=== PATIENT | female | born 1955 | race Caucasian/White ===

== ENCOUNTER 2017-02-07 15:03 | Observation (INO) ==
[2017-02-07 16:07] LABS: Basophils # 0.1 K/mcL (0.0-0.2); Basophils % 0.5 %; Eosinophils # 0.2 K/mcL (0.0-0.6); Eosinophils % 1.8 %; Hematocrit 39.6 % (35.3-44.9); Hemoglobin 12.5 g/dL (11.5-15.4); Immature Granulocytes % 0.6 % (0-4); Lymphocytes # 1.4 K/mcL (0.6-4.6); Mean Corpuscular HGB Conc 31.6 g/dL (31.6-35.5); Mean Corpuscular Hemoglobin 26.8 pg (28.0-33.3); Mean Platelet Volume 9.6 fL (9.4-12.4); Monocytes # 0.8 K/mcL (0.0-1.3); Neutrophils # 9.9 K/mcL (1.6-8.9); Platelet Count 314 K/mcL (140-400); Red Blood Count 4.66 M/mcL (3.82-4.97); Red Cell Distribution Width 15.5 % (11.5-14.5); Segmented Neutrophils % 80.1 %
[2017-02-07 16:20] LABS: BUN/Creatinine Ratio 26 (6-26); Blood Urea Nitrogen 23 mg/dL (7-20); Carbon Dioxide 29 mEq/L (19-29); Chloride 103 mEq/L (98-109); Glucose 106 mg/dL (70-99); Osmolality,Calculated 296 (280-300); Sodium 141 mEq/L (136-145); eGFR For African Americans > 60 (> 60); eGFR For Non-African Americans > 60 (> 60)
--- NOTE | 2017-02-07 16:38 | Emergency Department Note ---
Disposition Clinical Impression: TIA (transient ischemic attack) Qualifiers: Transient cerebral ischemia type: unspecified Qualified Code(s): G45.9 - Transient cerebral ischemic attack, unspecified Disposition: Admitted As Inpatient Condition: Fair Time of Disposition: 19:37 General Adult HPI - General Chief complaint: ED Neuro Symptoms/Deficit Stated complaint: NUMBNESS Time Seen by Provider: 02/07/17 15:36 Source: patient Limitations: no limitations Nursing Notes Reviewed: Yes Vital Signs Reviewed: Yes - History of Present Illness HPI Narrative: Patient is a 59-year-old female with history of diabetes hypertension hyperlipidemia, thyroid disease and diabetes complains of intermittent left- sided weakness with right-sided intermittent headache symptoms. She is unable to describe the pain and she feels but it comes and goes and lasts approximately 30 minutes. Patient states this happened 4 days ago and was seen in the ED had a head CT and workup but had no acute findings and had resolution of symptoms and was discharged home. Patient states that 0 5:30 this morning symptoms returned with left upper and lower extremity weakness all by headache left-sided head last for 30 minutes and blurred vision. Patient called her PCP and was told to go to the ED. Patient states that her headache stopped after she got the bus. Patient also reports URI symptoms of congestion and postnasal drip and bout of loose stool that started today no blood Pain Scale: 0 - Related Data Home Medications Medication Instructions Recorded Confirmed Allopurinol [Zyloprim] 300 mg PO DAILY 09/07/16 09/07/16 Carvedilol 3.125 mg PO BID 09/07/16 09/07/16 Cyclobenzaprine [Flexeril] 10 mg PO TID 09/07/16 09/07/16 Ergocalciferol (VITAMIN D2) 50,000 unit PO QWEEK 09/07/16 09/07/16 [Vitamin D2] GlipiZIDE [Glipizide] 10 mg PO BID 09/07/16 09/07/16 Levothyroxine [Synthroid] 25 mcg PO DAILY 09/07/16 09/07/16 Linagliptin [Tradjenta] 5 mg PO DAILY 09/07/16 09/07/16 Lovastatin [Mevacor] 20 mg PO DAILY 09/07/16 09/07/16 Metformin [Glucophage] 500 mg PO BID 09/07/16 09/07/16 Methocarbamol [Robaxin] 500 mg PO TID 09/07/16 09/07/16 Albuterol Sulfate [Proair Hfa] 1 - 2 puff IH Q6H PRN 02/07/17 02/07/17 CloNIDine HCl [Clonidine HCl] 0.3 mg PO BID 02/07/17 02/07/17 Furosemide [Lasix] 40 mg PO Q48H PRN 02/07/17 02/07/17 Ketotifen Fumarate [Zaditor] 1 drop OP BID 02/07/17 02/07/17 Potassium Chloride [K-Tab ER] 20 meq PO BID 02/07/17 02/07/17 Previous Rx's Medication Instructions Recorded Amlodipine [Norvasc] 5 mg PO DAILY #60 tablet 09/10/16 Clopidogrel [Plavix] 75 mg PO DAILY #30 tablet 10/25/16 Allergies Allergy/AdvReac Type Severity Reaction Status Date / Time Amoxicillin Allergy Hives Verified 02/04/17 01:38 codeine Allergy Hives Verified 02/04/17 01:38 Constitutional: Denies: fever, chills, weakness Eyes: Reports: vision change ENT ED: Reports: congestion. 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 Patient has not had a workup radius issues. Patient received a head CT today and ESR for possible giant cell arteritis secondary to right-sided temporal pain and blurry vision with right-sided headache. CBC, BMP, troponin, chest x-ray, EKG ordered as well Time: 15:53 Reevaluation #2: Head CT showed no acute abnormalities, ESR 63 elevated but not entirely impressive. Patient had elevated white count 12.4 but patient shows no signs of infection or increased heart rate. Head CT 02/07/17 15:38 IMPRESSION: No acute intracranial abnormality. D/ / Quinten Ambriz MD / Quinten Ambriz MD Interpreting Provider: Quinten Ambriz MD Time: 17:45 Reevaluation #3: Discussed with patient the concerns we have considering her recent condition and recommended admission. Patient agrees to admission. Time: 18:06 - Consultations Consultation #1: Pt was accepted for admission by Dr. Calzada Time: 18:15 Vital Signs Temperature 97.6 F 02/07/17 15:23 Pulse Rate 82 02/07/17 15:23 Respiratory Rate 22 02/07/17 15:23 Blood Pressure 150/85 02/07/17 15:23 O2 Sat by Pulse Oximetry 99 02/07/17 15:23 Temperature 97.6 F 02/07/17 15:23 Pulse Rate 82 02/07/17 18:29 Respiratory Rate 20 02/07/17 18:29 Blood Pressure 152/94 02/07/17 18:29 O2 Sat by Pulse Oximetry 100 02/07/17 16:34 Oxygen Delivery Oxygen Delivery Room Air Medical Decision Making - MDM Narrative Medical decision making narrative: 61-year-old female who presents with 3 bouts of resolved left-sided focal neurological deficits have resolved on her own. Patient had one episode days ago, and patient had 2 episodes today. Patient has not had previous workup. Patient being admitted for further evaluation. CT head no acute intracranial abnormalities, patient's labs show an ESR 63, a WBC of 12.4, and a BUN of 23, EKG showed no acute signs of acute ischemia of ST elevations or depressions, no QT prolongation, no QRS widening After discussion with the patient and she agrees that this is serious enough for admission to the hospital. Discussed case with Dr. Calzada who accepted patient for admission - Medical Records Medical records reviewed: Yes I reviewed the patient's medical records. - Lab Data Lab results reviewed: Yes I reviewed the patient's lab results. Lab results narrative: Short CBC 02/07/17 Range/Units 15:53 WBC 12.4 H (4.3-11.1) K/mcL Hgb 12.5 (11.5-15.4) g/dL Hct 39.6 (35.3-44.9) % Plt Count 314 (140-400) K/mcL Neutrophils # 9.9 H (1.6-8.9) K/mcL BMP 02/07/17 Range/Units 15:53 Sodium 141 (136-145) mEq/L Potassium 4.0 (3.5-4.5) mEq/L Chloride 103 (98-109) mEq/L Carbon Dioxide 29 (19-29) mEq/L BUN 23 H (7-20) mg/dL Creatinine 0.87 (0.57-1.11) mg/dL Glucose 106 H (70-99) mg/dL Calcium 10.0 (8.6-10.8) mg/dL Cardiac Enzymes 02/07/17 Range/Units 15:53 Troponin I 0.01 (0-0.03) ng/mL Result diagrams: 02/07/17 15:53 02/07/17 15:53 Lab Results 02/07/17 02/07/17 02/07/17 Range/Units 15:53 15:53 15:53 WBC 12.4 H (4.3-11.1) K/mcL RBC 4.66 (3.82-4.97) M/mcL Hgb 12.5 (11.5-15.4) g/dL Hct 39.6 (35.3-44.9) % MCV 85.0 (83.0-100.0) fL MCH 26.8 L (28.0-33.3) pg MCHC 31.6 (31.6-35.5) g/dL RDW 15.5 H (11.5-14.5) % Plt Count 314 (140-400) K/mcL MPV 9.6 (9.4-12.4) fL Immature Gran % 0.6 (0-4) % Seg Neutrophils % 80.1 % Lymphocytes % 11.0 % Monocytes % 6.0 % Eosinophils % 1.8 % Basophils % 0.5 % Neutrophils # 9.9 H (1.6-8.9) K/mcL Lymphocytes # 1.4 (0.6-4.6) K/mcL Monocytes # 0.8 (0.0-1.3) K/mcL Eosinophils # 0.2 (0.0-0.6) K/mcL Basophils # 0.1 (0.0-0.2) K/mcL ESR (0-15) mm/hr Sodium 141 (136-145) mEq/L Potassium 4.0 (3.5-4.5) mEq/L Chloride 103 (98-109) mEq/L Carbon Dioxide 29 (19-29) mEq/L BUN 23 H (7-20) mg/dL Creatinine 0.87 (0.57-1.11) mg/dL Est GFR ( Amer) > 60 (> 60) Est GFR (Non-Af Amer) > 60 (> 60) BUN/Creatinine Ratio 26 (6-26) Glucose 106 H (70-99) mg/dL Calculated Osmolality 296 (280-300) Calcium 10.0 (8.6-10.8) mg/dL Troponin I 0.01 (0-0.03) ng/mL 02/07/17 Range/Units 15:53 WBC (4.3-11.1) K/mcL RBC (3.82-4.97) M/mcL Hgb (11.5-15.4) g/dL Hct (35.3-44.9) % MCV (83.0-100.0) fL MCH (28.0-33.3) pg MCHC (31.6-35.5) g/dL RDW (11.5-14.5) % Plt Count (140-400) K/mcL MPV (9.4-12.4) fL Immature Gran % (0-4) % Seg Neutrophils % % Lymphocytes % % Monocytes % % Eosinophils % % Basophils % % Neutrophils # (1.6-8.9) K/mcL Lymphocytes # (0.6-4.6) K/mcL Monocytes # (0.0-1.3) K/mcL Eosinophils # (0.0-0.6) K/mcL Basophils # (0.0-0.2) K/mcL ESR 63 H (0-15) mm/hr Sodium (136-145) mEq/L Potassium (3.5-4.5) mEq/L Chloride (98-109) mEq/L Carbon Dioxide (19-29) mEq/L BUN (7-20) mg/dL Creatinine (0.57-1.11) mg/dL Est GFR ( Amer) (> 60) Est GFR (Non-Af Amer) (> 60) BUN/Creatinine Ratio (6-26) Glucose (70-99) mg/dL Calculated Osmolality (280-300) Calcium (8.6-10.8) mg/dL Troponin I (0-0.03) ng/mL - Radiology Data Radiology results reviewed: Yes I reviewed the patient's radiology results. Head CT 02/07/17 15:38
--- NOTE | 2017-02-07 16:50 | Emergency Department Note ---
START Narrative - START START: I examined this patient and my medical decision-making was reviewed with the TOOL POLISHING MACHINE OPERATOR/PA/Advanced Practice Nurse/Resident Physician. I agree with the documented findings, disposition and treatment plan as described except to the extent set forth below. ED attending note: I saw this Patient with the emergency medicine resident Dr. Liao. Please see a copy of his note for details of the H&P, evaluation, management and disposition of this emergency Department patient. We independently had [id number] contact with the patient. Briefly: 61-year-old female presents ambulatory with what appears to be several episodes of TIA-like symptoms. Which started since early this morning. Patient is awake and alert GCS 15 now. Her primary care provider after the second episode and told her to come to the emergency department. No prior history of TIA or CVA. Patient is GCS 15 and nonfocal neurologically. We will undergo TIA workup. Disposition pending. Provided 35 minutes of critical care services for this patient.
[2017-02-07] MEDS ORDERED: Acetaminophen 325 MG TABLET PO PRN (23:51)
[2017-02-07] MEDS ORDERED: D5% in Water 1,000 ML IV PRN (23:51)
[2017-02-07] MEDS ORDERED: Naloxone 0.4 MG/ML INJ IVP PRN (23:51)
[2017-02-07] MEDS ORDERED: *HR* Dextrose 50 % in Water (Syg) 50 ML SYRINGE IVP PRN (23:51)
[2017-02-07] MEDS ORDERED: Dextrose Gel 15 GM PO PRN ×2 (23:51)
[2017-02-07] MEDS ORDERED: Ondansetron 4 MG/2 ML VIAL IVP PRN (23:51)
--- NOTE | 2017-02-08 00:05 | Internal Med History&Physical ---
Date of Encounter: 02/08/17 Time of Encounter: 00:01 Assessment and Plan (1) TIA (transient ischemic attack) Current visit: Yes Status: Acute 1. Symptoms have resolved. 2. Will monitor neurochecks. 3. Proceed with work-up including ECHO, Carotid Dopplers, MRI brain. 4. Check lipid profile. 5. Start ASA; patient already on Plavix. 6. Check EKG and monitor on telemetry. Qualifiers: Transient cerebral ischemia type: unspecified Qualified Code(s): G45.9 - Transient cerebral ischemic attack, unspecified (2) DM2 (diabetes mellitus, type 2) Current visit: Yes Status: Chronic 1. Hold oral diabetic agents while in hospital. 2. Monitor glucose and proceed with SSI. 3. Check A1C. 4. Monitor for hypoglycemia. 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 Continue home meds as appropriate. 2. Monitor BP and adjust as necessary. Qualifiers: Hypertension type: essential hypertension Qualified Code(s): I10 - Essential (primary) hypertension (4) DVT prophylaxis Current visit: Yes Status: Acute 1. Heparin SQ. Internal Medicine - H&P: HPI Chief complaint: left arm weakness Admitted From: Emergency Dept Plans for Post Hospital Care: Home History of present illness: Ms. Mills is a 61 year old female who presents with a 3 to 4-day history of left arm and left lower extremity weakness and numbness. Her symptoms resolved spontaneously 2 times over the last few days. However, her symptoms recurred for a third time today and this scared her, prompting her to come to the ER. Workup in the ER was negative. She has no further numbness, weakness, or paresthesias. However, given her symptoms, risk factors, and concern for possible TIA/stroke she was admitted to hospitalist service. I saw patient in the ER and evaluated her. Presently, she has no concerns or complaints at this time. She does reiterate the above history. She also tells me she has had a prior stroke several years ago. Her stroke risk factors include history of prior stroke, diabetes, and hypertension., Her mother of a stroke many years ago. Her glucose is relatively well controlled and she does not take insulin. She is a former smoker, but she quit about [address] of the head was negative. Unfortunately, an EKG has not yet been done, and I asked the ER to proceed with an EKG. Past Med Surg Social Fam HX - Past Medical History Attestation: Yes The following information was validated with the patient. Source: patient, old records reviewed Medical history: diabetes, hyperlipidemia, hypertension, thyroid disease, TIA ( old) Psychiatric history: anxiety, depression - Past Surgical History Surgical History: , orthopedic, other - Social History Smoking Status: Former smoker Smokeless Tobacco Status: No Alcohol use: none Drug use: none Current living situation: Home, With Family Activity Level: Independent ambulation Recent Out of Country Travel Within the Last 8 Weeks: No - Family History Mother Living Status: Cause of : stroke Hx Family Neurologic Disorders: Yes Father Living Status: Cause of : IN Hx Family Cardiac Disorders: Yes Hx Family Neurologic Disorders: No Internal Medicine - H&P: Meds Allopurinol [Zyloprim] 300 mg PO DAILY 09/07/16 [History] Carvedilol 3.125 mg PO BID 09/07/16 [History] Cyclobenzaprine [Flexeril] 10 mg PO TID 09/07/16 [History] Ergocalciferol (VITAMIN D2) [Vitamin D2] 50,000 unit PO QWEEK 09/07/16 [History] GlipiZIDE [Glipizide] 10 mg PO BID 09/07/16 [History] Levothyroxine [Synthroid] 25 mcg PO DAILY 09/07/16 [History] Linagliptin [Tradjenta] 5 mg PO DAILY 09/07/16 [History] Lovastatin [Mevacor] 20 mg PO DAILY 09/07/16 [History] Metformin [Glucophage] 500 mg PO BID 09/07/16 [History] Methocarbamol [Robaxin] 500 mg PO TID 09/07/16 [History] Amlodipine [Norvasc] 5 mg PO DAILY #60 tablet 09/10/16 [Rx] Clopidogrel [Plavix] 75 mg PO DAILY #30 tablet 10/25/16 [Rx] Albuterol Sulfate [Proair Hfa] 1 - 2 puff IH Q6H PRN 02/07/17 [History] CloNIDine HCl [Clonidine HCl] 0.3 mg PO BID 02/07/17 [History] Furosemide [Lasix] 40 mg PO Q48H PRN 02/07/17 [History] Ketotifen Fumarate [Zaditor] 1 drop OP BID 02/07/17 [History] Potassium Chloride [K-Tab ER] 20 meq PO BID 02/07/17 [History] Allergies Amoxicillin Allergy (Verified 02/04/17 01:38) Hives codeine Allergy (Verified 02/04/17 01:38) Hives - Constitutional Constitutional: no chills, no fever(s), no night sweats - EENT Eyes: no change in vision, no diplopia Ears: no ear pain, no tinnitus Nose, mouth and throat: no nasal congestion, no sinus pressure, no sore throat - Cardiovascular Cardiovascular ROS IM: no chest pain, no diaphoresis, no dyspnea, no dyspnea on exertion, no irregular heart rhythm, no lightheadedness, no palpitations, no syncope - Respiratory Respiratory: no cough, no dyspnea, no wheezing, no chest congestion, no excessive phlegm production, no change in phlegm color - Gastrointestinal Gastrointestinal: no abdominal pain, no diarrhea, no hematemesis, no hematochezia, no melena, no nausea, no vomiting - Genitourinary Genitourinary: no dysuria, no flank pain, no hematuria - Musculoskeletal Musculoskeletal ROS IM: back pain (chronic), no limited range of motion, no muscle cramps - Integumentary Integumentary IM: no rash, no jaundice - Neurological Neurological ROS: focal weakness (LUE/LLE), numbness (LUE/LLE), paresthesias ( LUE/LLE), no dizziness, no frequent falls, no headache(s) Additional comments: all above symptoms have resolved today - Psychiatric Psychiatric: no anxiety, no depression - Endocrine Endocrine IM: no cold intolerance, no heat intolerance, no polydipsia, no polyuria - Hematologic/Lymphatic Hematologic/Lymphatic: easy bruising, no lymphadenopathy - Allergic/Immunologic Allergic/Immunologic: no wheezing, no GI upset with certain foods - Constitutional Vitals: Temp Pulse Resp BP Pulse Ox 97.6 F 86 18 142/91 100 02/07/17 15:23 02/07/17 19:41 02/07/17 22:52 02/07/17 22:52 02/07/17 16:34 General appearance: Present: cooperative, A&O X 3, pleasant, no acute distress, obese, answers questions appropriately - Head Head exam: Present: atraumatic, normal inspection - Expanded Head Exam Head exam expanded: Absent: abrasion, contusion, general tenderness - Eye Eye exam: Present: EOMI, normal appearance, PERRL. Absent: scleral icterus Pupils: Present: normal accommodation - ENT ENT exam: Present: mucous membranes moist, normal exam, normal oropharynx - Neck Neck exam general surgery: Present: full ROM, normal inspection, supple, trachea midline - Respiratory Respiratory exam: Present: CTAB. Absent: rales, rhonchi, wheezes - Cardiovascular Cardiovascular exam: Present: RRR, +S1, +S2. Absent: diastolic murmur, JVD, systolic murmur - GI/Abdominal GI/Abdominal exam: Present: normal bowel sounds, soft. Absent: guarding, hepatomegaly, mass, rebound, splenomegaly, tenderness - Extremities Exam Extremities exam: Present: full ROM, normal capillary refill, warm. Absent: calf tenderness, joint swelling, pedal edema - Back Exam Back exam: Present: normal inspection. Absent: CVA tenderness (L), CVA tenderness (R) - Neurological Exam Neurological exam: Present: alert, CN II-XII intact, oriented X3, reflexes normal, no focal deficits, strengths equal and symetr throughout. Absent: speech deficit - Psychiatric Psychiatric exam: Present: normal affect, normal mood - Skin Skin exam: Present: dry, warm. Absent: rash Internal Med - H&P Results - Labs CBC & Chem 7: 02/07/17 15:53 02/07/17 15:53 - Diagnostic Studies CT scan - head Additional comments: Report reviewed: negative
[2017-02-08] MEDS: *HR* Heparin 5,000 UNIT/ML VIAL SQ SCH ×3 (01:48→15:35)
[2017-02-08 06:51] LABS: INR 1.1; Prothrombin Time 11.4 Seconds (9.4-12.1)
[2017-02-08 06:53] LABS: Activated Partial Thrombo Time 34.6 Seconds (26.0-36.0)
[2017-02-08 06:56] LABS: Basophils # 0.1 K/mcL (0.0-0.2); Basophils % 0.6 %; Eosinophils # 0.3 K/mcL (0.0-0.6); Eosinophils % 2.9 %; Hematocrit 38.6 % (35.3-44.9); Hemoglobin 12.1 g/dL (11.5-15.4); Immature Granulocytes % 0.7 % (0-4); Lymphocytes # 2.1 K/mcL (0.6-4.6); Lymphocytes % 19.9 %; Mean Corpuscular HGB Conc 31.3 g/dL (31.6-35.5); Mean Corpuscular Hemoglobin 27.1 pg (28.0-33.3); Mean Corpuscular Volume 86.5 fL (83.0-100.0); Mean Platelet Volume 9.7 fL (9.4-12.4); Monocytes # 0.8 K/mcL (0.0-1.3); Monocytes % 7.8 %; Neutrophils # 7.3 K/mcL (1.6-8.9); Platelet Count 304 K/mcL (140-400); Red Blood Count 4.46 M/mcL (3.82-4.97); Red Cell Distribution Width 15.8 % (11.5-14.5); Segmented Neutrophils % 68.1 %
[2017-02-08 06:59] LABS: Hemoglobin A1C 5.2 %
[2017-02-08 07:10] LABS: Alanine Aminotransferase 14 Units/L (0-55); Albumin 3.3 g/dL (3.5-5.0); Alkaline Phosphatase 201 Units/L (38-126); Aspartate Amino Transferase 12 Units/L (5-34); BUN/Creatinine Ratio 22 (6-26); Bilirubin,Total 0.4 mg/dL (0.2-1.2); Blood Urea Nitrogen 21 mg/dL (7-20); Calcium 9.8 mg/dL (8.6-10.8); Carbon Dioxide 25 mEq/L (19-29); Chloride 105 mEq/L (98-109); Chol/HDL Ratio 3.7 (0-4.9); Cholesterol 163 mg/dL (< 200); Globulin 3.3 g/dL (2.4-3.5); Glucose 152 mg/dL (70-99); HDL Cholesterol 44 mg/dL (40-59); LDL Cholesterol,Calculated 57 mg/dL (0-99); Osmolality,Calculated 296 (280-300); Potassium 4.1 mEq/L (3.5-4.5); Sodium 140 mEq/L (136-145); Total Protein 6.6 g/dL (6.0-8.3); Triglycerides 310 mg/dL (< 150); eGFR For African Americans > 60 (> 60); eGFR For Non-African Americans > 60 (> 60)
[2017-02-08] MEDS: Insulin LISPRO 300 UNITS/3 ML VIAL SQ SCH ×3 (07:57→17:49)
[2017-02-08] MEDS ORDERED: Levothyroxine 25 MCG TABLET PO SCH (09:00)
[2017-02-08] MEDS ORDERED: amLODIPine 5 MG TABLET PO SCH (09:00)
[2017-02-08] MEDS ORDERED: Aspirin 81 MG TAB.CHEW PO SCH (09:00)
[2017-02-08] MEDS ORDERED: cloNIDine HCl 0.1 MG TABLET PO SCH (09:00)
[2017-02-08] MEDS ORDERED: (Ketotifen Fumarate [Zaditor] 1 DROP) OP SCH (09:00)
[2017-02-08] MEDS ORDERED: *HR* LORazepam 2 MG/ML VIAL IVP ONE (16:01)
[2017-02-08 16:02] VITALS: BP 134/83
--- NOTE | 2017-02-08 17:51 | Discharge Summary ---
Date of Encounter: 02/08/17 Time of Encounter: 17:30 - Discharge Diagnosis (1) TIA (transient ischemic attack) Priority: Primary Status: Resolved Comments: No focal neurological weakness is present during this admission. No speech difficulties. No indication for OT and PT evaluations. MRI negative. Echocardiogram and carotid ultrasound pending at time of discharge, follow-up outpatient for results. Head CT negative. Patient asymptomatic throughout this admission Qualifiers: Transient cerebral ischemia type: unspecified Qualified Code(s): G45.9 - Transient cerebral ischemic attack, unspecified (2) DM2 (diabetes mellitus, type 2) Priority: Secondary Status: Chronic Comments: Controlled, A1c 5.2%, follow-up outpatient Qualifiers: Diabetes mellitus complication status: without complication Diabetes mellitus retirement insulin use: without retirement use Qualified Code(s): E11.9 - Type 2 diabetes mellitus without complications (3) History of hypertension Priority: Secondary Status: Chronic Comments: Hypertensive upon arrival however her home medications of amlodipine 5 mg and carvedilol 3.125 mg twice a day were continued and she was normotensive throughout this admission. Recommend daily blood pressure checks at home, keeping a log, and following up outpatient. (4) Hyperlipidemia Priority: Secondary Status: Chronic Comments: Triglycerides elevated, rest of lipid panel unremarkable. Recommend low- cholesterol diet and continuation of statin (5) DVT prophylaxis Priority: Primary Status: Acute Comments: Subcutaneous heparin while admitted (6) Numbness and tingling in left upper extremity Priority: Primary Status: Resolved (7) Morbid obesity with BMI of 45.0-49.9, adult Priority: Secondary Status: Chronic - Discharge Medications Prescriptions: Aspirin 81 mg PO DAILY #30 tab.chew Home Medications: Allopurinol [Zyloprim] 300 mg PO DAILY 09/07/16 [History] Carvedilol 3.125 mg PO BID 09/07/16 [History] Cyclobenzaprine [Flexeril] 10 mg PO TID 09/07/16 [History] Ergocalciferol (VITAMIN D2) [Vitamin D2] 50,000 unit PO QWEEK 09/07/16 [History] GlipiZIDE [Glipizide] 10 mg PO BID 09/07/16 [History] Levothyroxine [Synthroid] 25 mcg PO DAILY 09/07/16 [History] Linagliptin [Tradjenta] 5 mg PO DAILY 09/07/16 [History] Lovastatin [Mevacor] 20 mg PO DAILY 09/07/16 [History] Metformin [Glucophage] 500 mg PO BID 09/07/16 [History] Methocarbamol [Robaxin] 500 mg PO TID 09/07/16 [History] Amlodipine [Norvasc] 5 mg PO DAILY #60 tablet 09/10/16 [Rx] Clopidogrel [Plavix] 75 mg PO DAILY #30 tablet 10/25/16 [Rx] Albuterol Sulfate [Proair Hfa] 1 - 2 puff IH Q6H PRN 02/07/17 [History] CloNIDine HCl [Clonidine HCl] 0.3 mg PO BID 02/07/17 [History] Furosemide [Lasix] 40 mg PO Q48H PRN 02/07/17 [History] Ketotifen Fumarate [Zaditor] 1 drop OP BID 02/07/17 [History] Potassium Chloride [K-Tab ER] 20 meq PO BID 02/07/17 [History] Aspirin 81 mg PO DAILY #30 tab.chew 02/08/17 [Rx] Allergies/Adverse Reactions: Allergies Amoxicillin Allergy (Verified 02/04/17 01:38) Hives codeine Allergy (Verified 02/04/17 01:38) Hives Procedures/tests Complete & Pending: Procedures Performed prior 72 hours Category Date Time Status MR head/brain wo con [MR] Routine MRI 02/08/17 04:46 Completed EKG [ECG 12 lead ECG] [ECG] Stat Y 02/07/17 23:35 Ordered EV carotid duplex imaging BI Routine Y 02/08/17 04:46 Ordered EV echocardiogram Routine Y 02/08/17 04:46 Ordered Date of admission: 02/07/17 19:02 Primary care physician: Tunde Martínez Discharging clinician: Jenn Borden Anticipated date of discharge: 02/08/17 (followup outpatient for echo and carotid results) - Patient Status Disposition: Home, Self-Care Condition: Fair Functional capacity at discharge: independent ambulation Overall status at discharge: patient is back to baseline - Discharge Instructions Instructions: Diabetes Mellitus Type 2 in Adults (DC) Follow Up With: Tunde Martínez MD [Primary Care Provider] - Additional Instructions: Follow-up with primary care provider in one to 2 weeks - Diet and Activity Activity: increase activity as tolerated Diet: diabetic diet, low fat, low cholesterol, low salt diet Hospital course: Ms. Mills is a 61 year old female with past medical history of diabetes, hyperlipidemia, hypertension, thyroid disease, prior TIA, morbid obesity, former tobacco abuse. Patient presented to the emergency room chief complaint 3 -4 day history of left arm and left lower extremity weakness and numbness. Patient stating her symptoms had resolved spontaneously twice over the past several days however her symptoms recurred for a third time which scared her and prompted her presentation to the emergency department. Workup in the emergency department unremarkable. Head CT negative. Patient was admitted to the hospitalist service for further evaluation and management. She was hypertensive upon arrival however was normotensive throughout this admission with resumption of her regular home antihypertensive medications. She was asymptomatic throughout this admission with no focal neurological weaknesses or paresthesias or numbness or tingling. Brain MRI negative for acute processes. Echocardiogram and carotid ultrasound results pending at time of discharge and she has been instructed to follow up outpatient with her primary care provider for these results. Baby aspirin was added to her regimen. She was discharged home in stable condition with close outpatient follow-up recommended. ITS Impressions Head CT 02/07/17 15:38 IMPRESSION: No acute intracranial abnormality. D/ / Quinten Ambriz MD / Quinten Ambriz MD Interpreting Provider: Quinten Ambriz MD Brain MRI 02/08/17 04:46 IMPRESSION: No acute infarct. D/ / Ketan Tena MD / Ketan Tena MD Interpreting Provider: Ketan Tena MD Echocardiogram and carotid ultrasound results pending at time of discharge, follow-up outpatient for results. - Time Spent with Patient Total time spent providing and/or coordinating discharge services: - Constitutional Vitals: Temp Pulse Resp BP Pulse Ox 97.5 F L 67 15 134/83 93 L 02/08/17 16:01 02/08/17 16:01 02/08/17 16:01 02/08/17 16:01 02/08/17 16:01 General appearance: Present: cooperative, A&O X 3, pleasant, no acute distress, obese, answers questions appropriately - Head Head exam: Present: atraumatic, normocephalic - Eye Eye exam: Present: PERRL, conjuntiva pink, sclera anicteric Pupils: Present: PERRL - Neck Neck exam general surgery: Present: supple, trachea midline. Absent: lymphadenopathy - Respiratory Respiratory exam: Present: CTAB. Absent: accessory muscle use, rales, respiratory distress, rhonchi, wheezes - Cardiovascular Cardiovascular exam: Present: RRR, +S1, +S2. Absent: diastolic murmur, gallop, rubs, systolic murmur - GI/Abdominal GI/Abdominal exam: Present: normal bowel sounds, soft, no peritoneal signs. Absent: distended, tenderness - Extremities Exam Extremities exam: Present: pedal edema (2+ bilaterally- normal for her), warm, radial pulses palpable and symetrical. Absent: calf tenderness, cyanotic - Neurological Exam Neurological exam: Present: alert, CN II-XII intact, oriented X3, no focal deficits, strengths equal and symetr throughout. Absent: pronater drift, facial droop, speech deficit - Expanded Neurological Exam Neurological exam expanded: Present: protecting the airway Patient oriented to: Present: person, place, time Speech: Present: fluid speech Cranial Nerves: EOM's intact PM: Normal, gag reflex PM: Normal Neuro motor strength exam: LUE: 5, RUE: 5, LLE: 5, RLE: 5 Coma Scale Eye Opening: Spontaneous Coma Scale Motor Response: Obeys Commands Coma Scale Verbal Response: Oriented Coma Scale Total: 15 - Skin Skin exam: Present: dry, intact, normal color, warm
--- NOTE | 2017-02-09 12:08 | ECHO - Doppler Report ---
Echo with Saline Contrast Name: Savita Mills Date of Study: 02/08/2017 Date: 1955 Ht: 64.0 in Medical Record#: [id number] Age: 61 Wt: 274.0 lb Gender: Female BSA: 2.24 Order #: [id number] Location: [facility] Room #: [id number] Reading Physician: Aryan Taylor DO, EDIS, DEB CABRALES Insulation Batting Machine Operator: Kelly Bazzi RDCS Ordering Physician: Kameron Ness MD Primary Physician: Tunde Martínez MD Indications: Transient Ischemic Attack Impressions: LVEF 60-65%. Normal LV chamber size and function. Mild concentric left ventricular hypertrophy. Mild left ventricular diastolic dysfunction. Right ventricular size was not well visualized. Grossly, it appears normal in function. Moderately dilated left atrium. No obvious evidence of PFO with agitated saline contrast. No evidence of pulmonary hypertension. RVSP not well obtained due to lack of adequate TR jet. No significant valvular dysfunction. Left Ventricular Wall Motion: Rest Echo Findings All wall segments showed normal motion. Findings: Study Quality * Technically sub-optimal due to body habitus. ECG Findings * Normal sinus rhythm. Left Ventricle * LVEF 60-65%. * Normal LV chamber size and function. * Mild concentric left ventricular hypertrophy. * Mild left ventricular diastolic dysfunction. Right Ventricle * Right ventricular size was not well visualized. Grossly, it appears normal in function. Left Atrium * Moderately dilated left atrium. Right Atrium * Mildly dilated right atrium. Interatrial Septum * Interatrial septum not well evaluated. * No obvious evidence of PFO with agitated saline contrast. Aortic Valve * Trileaflet aortic valve. * No aortic regurgitation. * No aortic stenosis. Mitral Valve * Moderate mitral annular calcification * No mitral regurgitation. * No mitral stenosis. Tricuspid Valve * Normal tricuspid valve structure and function. * Trace tricuspid regurgitation. * No evidence of pulmonary hypertension. RVSP not well obtained due to lack of adequate TR jet. Pulmonic Valve * Pulmonic valve not well visualized. Aorta * Normally sized aortic root. Pericardium * The pericardium appears normal. IVC * Normal IVC dimensions and inspiratory collapse. Pulmonary Artery * Pulmonary artery not well visualized. History Hypertension Diabetes Hypercholesteremia Family History of CAD 10/12/2016 a Previous Echo was performed. Contrast: Agitated saline 20 ml. Measurements: BP: 134/ 83 2D Normal Values RVIDd: 3.76 cm <2.7 cm IVSd: 1.20 cm 0.6 - 1.0 cm LVIDd: 4.37 cm 3.7 - 5.6 cm LVPWd: 1.20 cm 0.6 - 1.1 cm LVIDs: 2.43 cm 1.5 - 3.6 cm AO: 3.00 cm < 4.0 cm LA: 4.30 cm 2.0 - 4.0cm %FS: 44.40 cm >25 % LA volume: 75 Mitral Valve Peak E:1.16 m/sec Peak A:1.37 m/sec E/A Ratio:0.8 Peak E' Lat Ramos:9.68 cm/s Peak E' Med Ramos:12.1 cm/s E/E' Lat Ratio:12 E/E' Med Ratio:9.6 Tricuspid Valve TV Regurg Peak Grad: 23.00mmHg TV Regurg Peak Ramos: 2.41m/sec Updated by Aryan Taylor DO, EDIS, DEB CABRALES on 02/09/2017 12:03:02 PM electronically signed on 02/09/2017 12:03:48 PM with status of Final Wall Motion Bowling: 1=Normal, 2=Hypokinesis, 3=Akinesis, 4=Dyskinesis, 5=Aneurysmal, 6=Hyperkinetic, X=Not Visualized (Blank)=Missing
== END 2017-02-08 20:03 | disposition home or self-care (01) ==
LOC: 3BNU 15:03 → EMEROO 15:03 → SUATTDRO 19:02 → 3BNU 02-08 00:15
PROVIDERS: ADMIT Pediatrics; ATTEND Nurse Practitioner Family

== ENCOUNTER 2017-02-10 14:12 | Observation (INO) ==
--- NOTE | 2017-02-10 14:37 | Emergency Department Note ---
Disposition Clinical Impression: Transient cerebral ischemia Disposition: Admitted As Inpatient Condition: Undetermined General Adult HPI - General Chief complaint: ED Neuro Symptoms/Deficit Stated complaint: Numbness Time Seen by Provider: 02/10/17 14:25 Source: patient Limitations: no limitations Nursing Notes Reviewed: Yes Vital Signs Reviewed: Yes - History of Present Illness Pain Scale: 0 - Related Data Home Medications Medication Instructions Recorded Confirmed Allopurinol [Zyloprim] 300 mg PO DAILY 09/07/16 02/10/17 Carvedilol 3.125 mg PO BID 09/07/16 02/10/17 Ergocalciferol (VITAMIN D2) 50,000 unit PO QWEEK 09/07/16 02/10/17 [Vitamin D2] GlipiZIDE [Glipizide] 10 mg PO BID 09/07/16 02/10/17 Levothyroxine [Synthroid] 25 mcg PO QAM 09/07/16 02/10/17 Linagliptin [Tradjenta] 5 mg PO DAILY 09/07/16 02/10/17 Lovastatin [Mevacor] 20 mg PO HS 09/07/16 02/10/17 Metformin [Glucophage] 500 mg PO BID 09/07/16 02/10/17 Albuterol Sulfate [Proair Hfa] 1 - 2 puff IH Q6H PRN 02/07/17 02/10/17 CloNIDine HCl [Clonidine HCl] 0.3 mg PO BID 02/07/17 02/10/17 Furosemide [Lasix] 40 mg PO Q48H PRN 02/07/17 02/10/17 Ketotifen Fumarate [Zaditor] 1 drop OP BID 02/07/17 02/10/17 Potassium Chloride [K-Tab ER] 20 meq PO BID 02/07/17 02/10/17 Ammonium Lactate [Lac-Hydrin Five] 2 - 3 gm TP BID 02/10/17 02/10/17 Previous Rx's Medication Instructions Recorded Amlodipine [Norvasc] 5 mg PO DAILY #60 tablet 09/10/16 Clopidogrel [Plavix] 75 mg PO DAILY #30 tablet 10/25/16 Aspirin 81 mg PO DAILY #30 tab.chew 02/08/17 Allergies Allergy/AdvReac Type Severity Reaction Status Date / Time Amoxicillin Allergy Hives Verified 02/10/17 14:21 codeine Allergy Hives Verified 02/10/17 14:21 Past Medical History - Past Medical History Medical history: Reports: diabetes, hyperlipidemia, hypertension, thyroid disease, TIA Surgical history: Reports: , cholecystectomy, orthopedic, other Psychiatric history: Reports: anxiety, depression PAPER TESTING SUPERVISOR history: Reports: no PAPER TESTING SUPERVISOR history - Social History Smoking Status: Former smoker Smokeless Tobacco Status: No Alcohol use: Reports: none Drug use: Reports: none Physical Exam - General Limitations: no limitations General appearance: alert, in no apparent distress Course Vital Signs Temperature 97.2 F L 02/10/17 14:18 Pulse Rate 86 02/10/17 14:18 Respiratory Rate 16 02/10/17 14:18 Blood Pressure 133/80 02/10/17 14:18 O2 Sat by Pulse Oximetry 96 02/10/17 14:18 Temperature 0 F L 02/10/17 18:51 Pulse Rate 86 02/10/17 14:18 Respiratory Rate 18 02/10/17 18:51 Blood Pressure 139/76 02/10/17 18:51 O2 Sat by Pulse Oximetry 96 02/10/17 14:18 Oxygen Delivery Oxygen Delivery Room Air Medical Decision Making - MDM Narrative Medical decision making narrative: I examined this patient and my medical decision-making was reviewed with the PRODUCT SUPPORT TECHNICIAN/PA/Advanced Practice Nurse/Resident Physician. I agree with the documented findings, disposition and treatment plan as described except to the extent set forth below. Patient presents ambulatory to the emergency department and seen by Dr. Herr and myself, agrees his evaluation and complaints of rescue patient's stay, patient comes in today from around 9 AM this morning she had an episode lasted about an hour now has completely resolved her she has gotten weakness on the left side of her body. It looks like she has had either stroke or TIA in the past. She is currently on aspirin. No symptoms this time she is back to baseline and age is 1. Going to do a workup on her review her past records and and speak with neurology. Head CT 02/10/17 14:31 IMPRESSION: No acute intracranial abnormality. D/ / Liban Pillai MD / Liban Pillai MD Interpreting Provider: Liban Pillai MD 1550 hrs.: Patient's labs look good, she has a new CT done which shows no acute abnormalities. It is concerning that this could be another TIA were talked her about admission, she is in agreement with this plan. - Lab Data Result diagrams: 02/10/17 15:01 02/10/17 14:39 Lab Results 02/10/17 02/10/17 02/10/17 Range/Units 14:39 14:39 14:39 WBC (4.3-11.1) K/mcL RBC (3.82-4.97) M/mcL Hgb (11.5-15.4) g/dL Hct (35.3-44.9) % MCV (83.0-100.0) fL MCH (28.0-33.3) pg MCHC (31.6-35.5) g/dL RDW (11.5-14.5) % Plt Count (140-400) K/mcL MPV (9.4-12.4) fL Immature Gran % (0-4) % Seg Neutrophils % % Lymphocytes % % Monocytes % % Eosinophils % % Basophils % % Neutrophils # (1.6-8.9) K/mcL Lymphocytes # (0.6-4.6) K/mcL Monocytes # (0.0-1.3) K/mcL Eosinophils # (0.0-0.6) K/mcL Basophils # (0.0-0.2) K/mcL PT (9.4-12.1) Seconds INR APTT (26.0-36.0) Seconds Sodium 140 (136-145) mEq/L Potassium 4.3 (3.5-4.5) mEq/L Chloride 106 (98-109) mEq/L Carbon Dioxide 24 (19-29) mEq/L BUN 24 H (7-20) mg/dL Creatinine 0.81 (0.57-1.11) mg/dL Est GFR ( Amer) > 60 (> 60) Est GFR (Non-Af Amer) > 60 (> 60) BUN/Creatinine Ratio 30 H (6-26) Glucose 112 H (70-99) mg/dL Calculated Osmolality 295 (280-300) Calcium 9.6 (8.6-10.8) mg/dL Troponin I 0.01 (0-0.03) ng/mL Specimen Rejected Volume 02/10/17 02/10/17 Range/Units 14:39 15:01 WBC 9.7 (4.3-11.1) K/mcL RBC 4.13 (3.82-4.97) M/mcL Hgb 11.2 L (11.5-15.4) g/dL Hct 34.7 L (35.3-44.9) % MCV 84.0 (83.0-100.0) fL MCH 27.1 L (28.0-33.3) pg MCHC 32.3 (31.6-35.5) g/dL RDW 15.6 H (11.5-14.5) % Plt Count 287 (140-400) K/mcL MPV 9.6 (9.4-12.4) fL Immature Gran % 0.8 (0-4) % Seg Neutrophils % 68.1 % Lymphocytes % 19.8 % Monocytes % 7.3 % Eosinophils % 3.4 % Basophils % 0.6 % Neutrophils # 6.6 (1.6-8.9) K/mcL Lymphocytes # 1.9 (0.6-4.6) K/mcL Monocytes # 0.7 (0.0-1.3) K/mcL Eosinophils # 0.3 (0.0-0.6) K/mcL Basophils # 0.1 (0.0-0.2) K/mcL PT 11.0 (9.4-12.1) Seconds INR 1.0 APTT 34.3 (26.0-36.0) Seconds Sodium (136-145) mEq/L Potassium (3.5-4.5) mEq/L Chloride (98-109) mEq/L Carbon Dioxide (19-29) mEq/L BUN (7-20) mg/dL Creatinine (0.57-1.11) mg/dL Est GFR ( Amer) (> 60) Est GFR (Non-Af Amer) (> 60) BUN/Creatinine Ratio (6-26) Glucose (70-99) mg/dL Calculated Osmolality (280-300) Calcium (8.6-10.8) mg/dL Troponin I (0-0.03) ng/mL Specimen Rejected
--- NOTE | 2017-02-10 14:41 | Emergency Department Note ---
Disposition Clinical Impression: Transient cerebral ischemia Qualifiers: Transient cerebral ischemia type: unspecified Qualified Code(s): G45.9 - Transient cerebral ischemic attack, unspecified Disposition: Admitted As Inpatient Condition: Undetermined Referrals: NO,PCP [Primary Care Provider] - Forms: ED Satisfaction Letter Time of Disposition: 16:39 Neuro HPI - General Chief Complaint: ED Neuro Symptoms/Deficit Stated Complaint: Numbness Time Seen by Provider: 02/10/17 14:25 Source: patient Mode of arrival: ambulatory Limitations: no limitations Nursing Notes Reviewed: Yes Vital Signs Reviewed: Yes - History of Present Illness HPI Narrative: 61-year-old female with extensive history of CVA and TIA arrives to [facility] emergency department complaining of left upper extremity weakness and paresthesias. Patient states that the episode started at 09 100 this morning but had resolved roughly 30 minutes prior. The patient was recently admitted to and discharge from [facility] for CVA workup. The patient states she had a stroke this past Tuesday as well as the previous . The patient states she is also diabetic, hypertensive, hyperlipidemic. The patient denies any complaints at this time. She states that her neurologic status is back to baseline. The episode was witnessed by family members who agreed that the patient was extremity paresthesias and weakness on the left side. The patient states this is similar to where she had her experienced previously. The patient was diagnosed with TIA upon her last admission. She did have a workup which included an MRI as well as an ultrasound carotid Doppler. The patient was started on 81 mg aspirin daily. Denies any other complaints currently. Onset of Symptoms Date: 02/10/17 Onset of Symptoms Time: 09:00 (Last 30 minutes) Symptom Onset Unknown: No Timing confirmed by: family member Location: left face, left arm History of same: Yes Severity: mild Quality: weakness, numbness, tingling Symptoms Improving: Yes Improves with: none Worsens with: none Context: sudden onset On Anticoagulants: No Associated symptoms: Reports: denies other symptoms Treatments Prior to Arrival: none - Related Data Home Medications: Home Medications Medication Instructions Recorded Confirmed Allopurinol [Zyloprim] 300 mg PO DAILY 09/07/16 02/10/17 Carvedilol 3.125 mg PO BID 09/07/16 02/10/17 Ergocalciferol (VITAMIN D2) 50,000 unit PO QWEEK 09/07/16 02/10/17 [Vitamin D2] GlipiZIDE [Glipizide] 10 mg PO BID 09/07/16 02/10/17 Levothyroxine [Synthroid] 25 mcg PO QAM 09/07/16 02/10/17 Linagliptin [Tradjenta] 5 mg PO DAILY 09/07/16 02/10/17 Lovastatin [Mevacor] 20 mg PO HS 09/07/16 02/10/17 Metformin [Glucophage] 500 mg PO BID 09/07/16 02/10/17 Albuterol Sulfate [Proair Hfa] 1 - 2 puff IH Q6H PRN 02/07/17 02/10/17 CloNIDine HCl [Clonidine HCl] 0.3 mg PO BID 02/07/17 02/10/17 Furosemide [Lasix] 40 mg PO Q48H PRN 02/07/17 02/10/17 Ketotifen Fumarate [Zaditor] 1 drop OP BID 02/07/17 02/10/17 Potassium Chloride [K-Tab ER] 20 meq PO BID 02/07/17 02/10/17 Ammonium Lactate [Lac-Hydrin Five] 2 - 3 gm TP BID 02/10/17 02/10/17 Previous Rx's Medication Instructions Recorded Amlodipine [Norvasc] 5 mg PO DAILY #60 tablet 09/10/16 Clopidogrel [Plavix] 75 mg PO DAILY #30 tablet 10/25/16 Aspirin 81 mg PO DAILY #30 tab.chew 02/08/17 Allergies/Adverse Reactions: Allergies Allergy/AdvReac Type Severity Reaction Status Date / Time Amoxicillin Allergy Hives Verified 02/10/17 14:21 codeine Allergy Hives Verified 02/10/17 14:21 Review of Systems: Review of Systems Constitutional: Denies fevers, chills, night sweats HEENT: Denies headache, blurry vision, eye pain, tinnitus, vertigo, sore throat , Respiratory: Denies cough, sputum change, hemoptysis, dyspnea Cardiac: Denies chest pain, pressure, palpitations, dyspnea on exertion, pedal edema Gastrointestinal: Denies abdominal pain, changes in bowel habits, vomiting, nausea, Genitourinary: Denies dysuria, hematuria, nocturia, change in frequency, urgency, incontinence Neurologic: Denies any current headaches, dizziness, syncope, focalized weakness, paraesthesias, weakness Musculoskeletal: Denies back pain, joint pain, myalgias All systems ED: reviewed and negative except as stated. Past Medical History - Past Medical History Attestation: Yes The following information was validated with the patient. 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 Abdomen: Normal inspection, Normal bowel sounds 4 quadrants, nontender to palpation : Patient deferred Extremities: Normal inspection, full range of motion, appropriate pulses, capillary refill under 2 seconds Neurological: Patient alert and oriented 3, cranial nerves II through XII grossly intact, GCS 15, muscle strength 5 out of 5 bilaterally in upper and lower extremities, no paresthesias noted bilaterally in upper and lower extremity. Skin: Warm, intact, no rashes noted - General Limitations: no limitations General appearance: alert, in no apparent distress Course Course Narrative: Patient with extensive history of TIA. The patient had symptoms resolved prior to arrival to the emergency department. She has been experiencing frequent TIA , CVA like symptoms over the past 2 weeks. The patient was recently admitted the hospital. Patient was started on 81 mg aspirin. We will perform workup to include head CT, basic lab work, EKG, troponin. The patient will likely be admitted to the hospital after speaking with neurology. - Consultations Consultation #1: Spoke with Dr. Roca in neurology who recommends the patient be admitted to the hospital for further workup. In addition given the patient's repeated TIAS, he recommended a heparin stroke protocol which utilizes no boluses. The PTT Goal for this 60-90. Orders placed. We will admit the patient to the hospitalist. Vital Signs Temperature 97.2 F L 02/10/17 14:18 Pulse Rate 86 02/10/17 14:18 Respiratory Rate 16 02/10/17 14:18 Blood Pressure 133/80 02/10/17 14:18 O2 Sat by Pulse Oximetry 96 02/10/17 14:18 Temperature 97.2 F L 02/10/17 14:18 Pulse Rate 86 02/10/17 14:18 Respiratory Rate 16 02/10/17 14:18 Blood Pressure 133/80 02/10/17 14:18 O2 Sat by Pulse Oximetry 96 02/10/17 14:18 Oxygen Delivery Oxygen Delivery Room Air Neuro Symptoms/Deficit - Lab Data Result diagrams: 02/10/17 15:01 02/10/17 14:39 Lab Results 02/10/17 02/10/17 02/10/17 Range/Units 14:39 14:39 14:39 WBC (4.3-11.1) K/mcL RBC (3.82-4.97) M/mcL Hgb (11.5-15.4) g/dL Hct (35.3-44.9) % MCV (83.0-100.0) fL MCH (28.0-33.3) pg MCHC (31.6-35.5) g/dL RDW (11.5-14.5) % Plt Count (140-400) K/mcL MPV (9.4-12.4) fL Immature Gran % (0-4) % Seg Neutrophils % % Lymphocytes % % Monocytes % % Eosinophils % % Basophils % % Neutrophils # (1.6-8.9) K/mcL Lymphocytes # (0.6-4.6) K/mcL Monocytes # (0.0-1.3) K/mcL Eosinophils # (0.0-0.6) K/mcL Basophils # (0.0-0.2) K/mcL PT (9.4-12.1) Seconds INR APTT (26.0-36.0) Seconds Sodium 140 (136-145) mEq/L Potassium 4.3 (3.5-4.5) mEq/L Chloride 106 (98-109) mEq/L Carbon Dioxide 24 (19-29) mEq/L BUN 24 H (7-20) mg/dL Creatinine 0.81 (0.57-1.11) mg/dL Est GFR ( Amer) > 60 (> 60) Est GFR (Non-Af Amer) > 60 (> 60) BUN/Creatinine Ratio 30 H (6-26) Glucose 112 H (70-99) mg/dL Calculated Osmolality 295 (280-300) Calcium 9.6 (8.6-10.8) mg/dL Troponin I 0.01 (0-0.03) ng/mL Specimen Rejected Volume 02/10/17 02/10/17 Range/Units 14:39 15:01 WBC 9.7 (4.3-11.1) K/mcL RBC 4.13 (3.82-4.97) M/mcL Hgb 11.2 L (11.5-15.4) g/dL Hct 34.7 L (35.3-44.9) % MCV 84.0 (83.0-100.0) fL MCH 27.1 L (28.0-33.3) pg MCHC 32.3 (31.6-35.5) g/dL RDW 15.6 H (11.5-14.5) % Plt Count 287 (140-400) K/mcL MPV 9.6 (9.4-12.4) fL Immature Gran % 0.8 (0-4) % Seg Neutrophils % 68.1 % Lymphocytes % 19.8 % Monocytes % 7.3 % Eosinophils % 3.4 % Basophils % 0.6 % Neutrophils # 6.6 (1.6-8.9) K/mcL Lymphocytes # 1.9 (0.6-4.6) K/mcL Monocytes # 0.7 (0.0-1.3) K/mcL Eosinophils # 0.3 (0.0-0.6) K/mcL Basophils # 0.1 (0.0-0.2) K/mcL PT 11.0 (9.4-12.1) Seconds INR 1.0 APTT 34.3 (26.0-36.0) Seconds Sodium (136-145) mEq/L Potassium (3.5-4.5) mEq/L Chloride (98-109) mEq/L Carbon Dioxide (19-29) mEq/L BUN (7-20) mg/dL Creatinine (0.57-1.11) mg/dL Est GFR ( Amer) (> 60) Est GFR (Non-Af Amer) (> 60) BUN/Creatinine Ratio (6-26) Glucose (70-99) mg/dL Calculated Osmolality (280-300) Calcium (8.6-10.8) mg/dL Troponin I (0-0.03) ng/mL Specimen Rejected - EKG Data EKG attestation: Yes I reviewed and interpreted this EKG. EKG results narrative: Heart rate 81 beats for minute period. 199 ms. QTc 425 ms. Normal axis. Normal sinus rhythm with right bundle branch block. Numerous PVCs noted. No ST elevation or ST depression. EKG similar to EKG from 02/04/2017. NIH Stroke Scale - Level of Consciousness LOC: Alert - LOC Questions LOC Questions: Answers both correctly - LOC Commands LOC Commands: Performs both correctly - Best Gaze Best Gaze: Normal - Visual Visual: No visual loss - Facial Palsy Facial Palsy: Normal - Motor Arms Motor Arm-Left: No drift for 10 seconds Motor Arm-Right: No drift for 10 seconds - Motor Legs Motor Leg-Left: No drift for 5 seconds Motor Leg-Right: No drift for 5 seconds - Limb Ataxia Limb Ataxia: Normal, No Ataxia - Sensory Sensory: Normal - Best Language Best Language: No aphasia - Dysarthria Dysarthria: Normal - Extinction and Inattention Extinction and Inattention: Normal - NIHSS Total Score NIHSS Total Score: 0 TPA Checklist - LKW: 3-4.5 hrs Add. Contraindications Patient/family understanding: The patient/family members have been counseled and understood the risk, benefit , and alternatives of treatment.
[2017-02-10 14:59] LABS: BUN/Creatinine Ratio 30 (6-26); Blood Urea Nitrogen 24 mg/dL (7-20); Calcium 9.6 mg/dL (8.6-10.8); Carbon Dioxide 24 mEq/L (19-29); Chloride 106 mEq/L (98-109); Glucose 112 mg/dL (70-99); Osmolality,Calculated 295 (280-300); Potassium 4.3 mEq/L (3.5-4.5); Sodium 140 mEq/L (136-145); eGFR For African Americans > 60 (> 60); eGFR For Non-African Americans > 60 (> 60)
[2017-02-10 15:11] LABS: Basophils # 0.1 K/mcL (0.0-0.2); Basophils % 0.6 %; Eosinophils # 0.3 K/mcL (0.0-0.6); Eosinophils % 3.4 %; Hematocrit 34.7 % (35.3-44.9); Hemoglobin 11.2 g/dL (11.5-15.4); Immature Granulocytes % 0.8 % (0-4); Lymphocytes # 1.9 K/mcL (0.6-4.6); Lymphocytes % 19.8 %; Mean Corpuscular HGB Conc 32.3 g/dL (31.6-35.5); Mean Corpuscular Hemoglobin 27.1 pg (28.0-33.3); Mean Platelet Volume 9.6 fL (9.4-12.4); Monocytes # 0.7 K/mcL (0.0-1.3); Monocytes % 7.3 %; Neutrophils # 6.6 K/mcL (1.6-8.9); Platelet Count 287 K/mcL (140-400); Red Blood Count 4.13 M/mcL (3.82-4.97); Red Cell Distribution Width 15.6 % (11.5-14.5); Segmented Neutrophils % 68.1 %
[2017-02-10 16:55] LABS: Activated Partial Thrombo Time 34.3 Seconds (26.0-36.0)
[2017-02-10] MEDS: Heparin 25,000 UNIT/500 ML D5W 25,000 UNIT/500 ML MLS IVC SCH (16:59)
--- NOTE | 2017-02-10 20:41 | Internal Med History&Physical ---
<Jamshid Sharif - Last Filed: 02/10/17 23:12> Date of Encounter: 02/10/17 Time of Encounter: 20:15 Assessment and Plan (1) TIA (transient ischemic attack) Current visit: No Status: Acute Patient reports having several episodes of left arm and leg numbness, an episode last Tuesday and last . These prior episodes and this current episode resolved spontaneously. She has previously undergone workup for CVA/TIA including TTE, brain MRI, brain CT, and carotid dopplers all of which were negative for acute events. Her labs are not suggestive of electrolyte disturbance masquerading as a TIA. I do have some concern that her recurrent symptoms could be cardiac in origin from an occult arrhythmia, but am currently unsure. She was placed on a heparin drip per the recommendation of Dr. Roca, neurologist Neurology has been consulted and appreciate assistance in continued/future care of patient Will continue heparin drip Will obtain MRA of the head/neck Prior TIA/CVA workup was negative Will place patient on telemetry to monitor for any potential arrhythmias Will obtain TSH with patient history of hypothyroidism and current levothyroxine usage Will check patient A1c and monitor blood sugars to help elucidate if hypoglycemia is contributing to her symptoms Consider GALI if further workup is negative Consider Holter monitor for occult arrhythmia PT/OT consult and evaluation Qualifiers: Transient cerebral ischemia type: unspecified Qualified Code(s): G45.9 - Transient cerebral ischemic attack, unspecified (2) History of hypertension Current visit: No Status: Chronic Patient has history of hypertension, she takes several medications at home normally for this. Her current bp is 133/81. Will continue her home medications including clonidine and amlodipine (3) History of hypothyroidism Current visit: Yes Status: Acute Patient has history of hypothyroidism and had previous thyroid surgery. She is on a home dose of levothyroxine Continue patient home levothyroxine Will obtain TSH (4) Hyperlipidemia Current visit: No Status: Chronic Lipid profile on record from patient admission on 02/08. Increased triglycerides , increased VLDL, normal otherwise Continue home simvastatin Qualifiers: Hyperlipidemia type: unspecified Qualified Code(s): E78.5 - Hyperlipidemia , unspecified (5) DM2 (diabetes mellitus, type 2) Current visit: No Status: Chronic Will hold oral hypoglycemic/diabetic medications Start 20 units levemir HS Start medium dose sliding scale insulin coverage with humalog Will obtain A1c Qualifiers: Diabetes mellitus complication status: without complication Diabetes mellitus snf insulin use: without long term care administrator use Qualified Code(s): E11.9 - Type 2 diabetes mellitus without complications (6) DVT prophylaxis Current visit: No Status: Acute Patient on heparin drip per neurology for concern for TIA/CVA (7) Morbid obesity with BMI of 45.0-49.9, adult Current visit: No Status: Chronic Internal Medicine - H&P: HPI Chief complaint: Stroke Symptoms Admitted From: Home Plans for Post Hospital Care: Home History of present illness: Ms. Mills is a 61 year old female prior medical his iov-[id number] diabetes mellitus, hypertension, hyperlipidemia, hypothyroidism,iin previous TIAs who presents to the emergeny room having had a return of her previous (and recently) experienced stroke-like symptoms. She states that her symptoms began this morning and resolved about a half hour after. She states that she was having left arm numbness/tingling and felt as if her foot/toes were tightening. She reports that she might have had some weakness in her left extremities as well. She denies having had a headache, changes in her vision, feeling lightheaded, or having palpitations. She feels that she has had a little cold recently, but otherwise has been feeling healthy. She denies having any nausea.vomiting recently, not significant diarrhea, she denies polyuria or polydipsia. She has had 2 recent episodes of prior symptoms that were improved "with prayer, " and resolved spontaneously. She has had a recent CVA workup in the last couple days with a TTE, carotid dopplers, Head CT, and Head/brain MRI on 02/08, all of which were negative for acute or concerning process. When seen, she is comfortable and without concerns/complaints having had resolution of her symptoms earlier this morning. Past Med Surg Social Fam HX - Past Medical History Medical history: diabetes, hyperlipidemia, hypertension, thyroid disease, TIA Psychiatric history: anxiety, depression - Past Surgical History Surgical History: , cholecystectomy, orthopedic, other - Social History Smoking Status: Former smoker Smokeless Tobacco Status: No Alcohol use: none Drug use: none - Family History Mother Living Status: Hx Family Neurologic Disorders: Yes Father Adopted: No Family Member Ethnicity: Non- Living Status: Hx Family Cardiac Disorders: Yes Hx Family Respiratory Disorders: No Hx Family Cancer: No Hx Family GI Disorders: No Hx Family Endocrine Disorder: No Hx Family Neuromuscular Disorders: No Hx Family Neurologic Disorders: No Hx Family HEENT Disorders: No Hx Family Autoimmune Disorders: No Internal Medicine - H&P: Meds Allopurinol [Zyloprim] 300 mg PO DAILY 09/07/16 [History] Carvedilol 3.125 mg PO BID 09/07/16 [History] Ergocalciferol (VITAMIN D2) [Vitamin D2] 50,000 unit PO QWEEK 09/07/16 [History] GlipiZIDE [Glipizide] 10 mg PO BID 09/07/16 [History] Levothyroxine [Synthroid] 25 mcg PO QAM 09/07/16 [History] Linagliptin [Tradjenta] 5 mg PO DAILY 09/07/16 [History] Lovastatin [Mevacor] 20 mg PO HS 09/07/16 [History] Metformin [Glucophage] 500 mg PO BID 09/07/16 [History] Amlodipine [Norvasc] 5 mg PO DAILY #60 tablet 09/10/16 [Rx] Clopidogrel [Plavix] 75 mg PO DAILY #30 tablet 10/25/16 [Rx] Albuterol Sulfate [Proair Hfa] 1 - 2 puff IH Q6H PRN 02/07/17 [History] CloNIDine HCl [Clonidine HCl] 0.3 mg PO BID 02/07/17 [History] Furosemide [Lasix] 40 mg PO Q48H PRN 02/07/17 [History] Ketotifen Fumarate [Zaditor] 1 drop OP BID 02/07/17 [History] Potassium Chloride [K-Tab ER] 20 meq PO BID 02/07/17 [History] Aspirin 81 mg PO DAILY #30 tab.chew 02/08/17 [Rx] Ammonium Lactate [Lac-Hydrin Five] 2 - 3 gm TP BID 02/10/17 [History] Allergies Amoxicillin Allergy (Verified 02/10/17 14:21) Hives codeine Allergy (Verified 02/10/17 14:21) Hives - Constitutional Constitutional: no chills, no fever(s), no night sweats - EENT Eyes: no change in vision, no discharge, no pain, no photophobia Nose, mouth and throat: dry mouth, sore throat (minor), no dysphagia, no nasal discharge, no neck pain - Cardiovascular Cardiovascular ROS IM: no chest pain, no diaphoresis, no dyspnea, no lightheadedness, no palpitations, no syncope - Respiratory Respiratory: no cough, no dyspnea, no wheezing, no excessive phlegm production - Gastrointestinal Gastrointestinal: no abdominal pain, no diarrhea, no hematemesis, no hematochezia, no melena, no nausea, no vomiting - Genitourinary Genitourinary: no change in urinary stream, no dysuria, no flank pain, no hematuria - Musculoskeletal Musculoskeletal ROS IM: as per HPI, muscle weakness, numbness, tingling - Integumentary Integumentary IM: no rash, no unusual bruising - Neurological Neurological ROS: focal weakness, numbness, tingling, no confusion, no convulsions, no dizziness, no headache(s), no lack of coordination, no loss of vision, no tremor(s), no weakness - Endocrine Endocrine IM: no polydipsia, no polyphagia, no polyuria - Constitutional Vitals: Temp Pulse Resp BP Pulse Ox 97.4 F L 76 18 133/81 98 02/10/17 19:50 02/10/17 19:50 02/10/17 19:50 02/10/17 19:50 02/10/17 19:50 Exam: General: Cooperative, pleasant, no acute distress, alert and oriented 3, answers questions appropriately Head: Normocephalic, atraumatic Eye: Conjunctiva pink, sclera anicteric, EOMI, PERRL Neck: Supple, trachea midline, mucosa moist Respiratory: No accessory muscle usage, clear to auscultation bilaterally, no wheezes/rhonchi/rales appreciated Cardiovascular: Regular rate and rhythm, S1 and S2 present, no murmurs/rubs/ gallops/clicks appreciated, no carotid bruits auscultated GI/abdominal: Nondistended, nontender, soft, normal bowel sounds, no peritoneal signs, obese, protuberant Extremities: No calf tenderness, noncyanotic, +1 bilateral pitted pretibial edema, warm, lower extremity pulses palpable and symmetrical Neurological: Alert and oriented 3, no facial droop, no focal deficits, CN II- XII intact without deficits, sensation to light touch intact in UE and LE b/l, strength 5/5 in UE and LE b/l, heel to aponte normal, RAFAEL smooth and with good alyssia, [id number] smooth, accurate, and without tremors, romberg normal, gait normal Skin: Dry, intact, normal color Internal Med - H&P Results - Labs CBC & Chem 7: 02/10/17 15:01 02/10/17 14:39 - EKG Data -: EKG Interpreted by Myself EKG shows normal: sinus rhythm - EKG Data When compared to previous EKG: there is no significant change Interpretation IM: other (RBBB, stable) - Impressions ITS Impressions Head CT 02/10/17 14:31 IMPRESSION: No acute intracranial abnormality. D/ / Liban Pillai MD / Liban Pillai MD Interpreting Provider: Liban Pillai MD <Emily Blackmon - Last Filed: 02/11/17 05:17> Internal Medicine - H&P: HPI History of present illness: Ms. Mills is a 61 year old female All Systems PM: A 10-system review of systems was performed and is negative for pertinent findings except as documented above in the HPI. - Constitutional Vitals: Temp Pulse Resp BP Pulse Ox 97.6 F 76 14 118/72 98 02/11/17 04:29 02/11/17 04:29 02/11/17 04:29 02/11/17 04:29 02/11/17 04:29 Internal Med - H&P Results - Labs CBC & Chem 7: 02/11/17 02:55 02/11/17 02:55 Labs: Short CBC 02/11/17 Range/Units 02:55 WBC 8.8 (4.3-11.1) K/mcL Hgb 10.9 L (11.5-15.4) g/dL Hct 35.0 L (35.3-44.9) % Plt Count 272 (140-400) K/mcL Neutrophils # 5.6 (1.6-8.9) K/mcL BMP 02/11/17 02:55 Sodium 141 Potassium 4.2 Chloride 107 Carbon Dioxide 24 BUN 23 H Creatinine 0.91 Glucose 120 H Calcium 9.9 Liver Function 02/11/17 Range/Units 02:55 Total Bilirubin 0.3 (0.2-1.2) mg/dL AST 12 (5-34) Units/L ALT 18 (0-55) Units/L Alkaline Phosphatase 182 H (38-126) Units/L Albumin 3.2 L (3.5-5.0) g/dL - Attending Attestation I performed history and physical examination of the patient and discussed his management with the Resident/Manager Room. I reviewed the residents note and agree with the documented findings and plan of care, with additions as below. 61 Y/F with h/o [id number] diabetes mellitus, hypertension, hyperlipidemia, hypothyroidism, recent admission to the hospital with TIA. Reports numbness of the left and the left lower extremity, which was transient and has no symptoms now. she denies chest pain or palpitations. CT head done in the ER showed no acute intracranial abnormality. EKG personally reviewed by me shows sinus rhythm, RBBB; ventricular ectopics. O/E: No gross localizing deficits. Cardiac: Systolic murmur present. She had MRI of the brain on 02/08/17 , which showed no acute infarct. Carotid Doppler preliminary report showed no occlusive lesions. A/P: ER physician discussed with the neurologist Dr. Roca, who recommended heparin infusion continue. Will request for MR angiogram of neck and intracranial vessels. If negative, she may need GALI.
[2017-02-10] MEDS ORDERED: Naloxone 0.4 MG/ML INJ IVP PRN (20:42)
[2017-02-10] MEDS ORDERED: Ondansetron 4 MG/2 ML VIAL IVP PRN (20:42)
[2017-02-10] MEDS ORDERED: Dextrose Gel 15 GM PO PRN ×2 (20:42)
[2017-02-10] MEDS ORDERED: *HR* Dextrose 50 % in Water (Syg) 50 ML SYRINGE IVP PRN (20:42)
[2017-02-10] MEDS ORDERED: Furosemide 40 MG TABLET PO PRN (20:50)
[2017-02-10 21:38] LABS: Hemoglobin A1C 5.3 %
[2017-02-10] MEDS ORDERED: Melatonin 3 MG TABLET PO PRN (22:09)
[2017-02-10] MEDS: Insulin DETEMIR 100 UNIT/ML X5UNITS SQ SCH (23:37)
[2017-02-10] MEDS: Insulin LISPRO 300 UNITS/3 ML VIAL SQ SCH (23:37)
[2017-02-10] MEDS: cloNIDine HCl 0.1 MG TABLET PO SCH (23:37)
[2017-02-11 03:51] LABS: Basophils # 0.1 K/mcL (0.0-0.2); Basophils % 0.7 %; Eosinophils # 0.3 K/mcL (0.0-0.6); Eosinophils % 3.7 %; Hemoglobin 10.9 g/dL (11.5-15.4); Immature Granulocytes % 0.7 % (0-4); Lymphocytes # 2.2 K/mcL (0.6-4.6); Lymphocytes % 24.5 %; Mean Corpuscular HGB Conc 31.1 g/dL (31.6-35.5); Mean Corpuscular Hemoglobin 27.1 pg (28.0-33.3); Mean Corpuscular Volume 87.1 fL (83.0-100.0); Mean Platelet Volume 10.1 fL (9.4-12.4); Monocytes # 0.6 K/mcL (0.0-1.3); Monocytes % 6.9 %; Neutrophils # 5.6 K/mcL (1.6-8.9); Platelet Count 272 K/mcL (140-400); Red Blood Count 4.02 M/mcL (3.82-4.97); Red Cell Distribution Width 15.5 % (11.5-14.5); Segmented Neutrophils % 63.5 %
[2017-02-11 04:23] LABS: Alanine Aminotransferase 18 Units/L (0-55); Albumin 3.2 g/dL (3.5-5.0); Albumin/Globulin Ratio 1.1 (1.1-2.2); Alkaline Phosphatase 182 Units/L (38-126); Aspartate Amino Transferase 12 Units/L (5-34); BUN/Creatinine Ratio 25 (6-26); Bilirubin,Total 0.3 mg/dL (0.2-1.2); Blood Urea Nitrogen 23 mg/dL (7-20); Calcium 9.9 mg/dL (8.6-10.8); Carbon Dioxide 24 mEq/L (19-29); Chloride 107 mEq/L (98-109); Globulin 2.9 g/dL (2.4-3.5); Glucose 120 mg/dL (70-99); Magnesium 1.8 mg/dL (1.6-2.6); Osmolality,Calculated 297 (280-300); Phosphorous 3.9 mg/dL (2.3-4.7); Potassium 4.2 mEq/L (3.5-4.5); Sodium 141 mEq/L (136-145); Total Protein 6.1 g/dL (6.0-8.3); eGFR For African Americans > 60 (> 60); eGFR For Non-African Americans > 60 (> 60)
[2017-02-11] MEDS: Acetaminophen 325 MG TABLET PO PRN (05:24)
--- NOTE | 2017-02-11 06:32 | Electrocardiograph Report ---
[place] [facility] Test Date: 2017-02-10 Pat Name: Savita Mills Department: [id number] Room: 3B37 Gender: F Stitcher Standard Machine: LUZ MARINA : 1955 Requested By: Javier Herr Order Number: [id number] Reading MD: Javier Xiao DO Measurements Intervals [place] Rate: 81 P: 49 MO: 199 QRS: 7 QRSD: 134 T: 16 QT: 388 QTc: 425 Interpretive Statements SINUS RHYTHM WITH FREQUENT VENTRICULAR PREMATURE COMPLEXES RIGHT BUNDLE BRANCH BLOCK Electronically Signed On 02-11-2017 6:30:19 EDT by Javier Xiao DO
--- NOTE | 2017-02-11 07:15 | Neurology - Consult Note ---
Date of Encounter: 02/11/17 Time of Encounter: 07:10 Assessment and Plan (1) TIA (transient ischemic attack) Current Visit: No Status: Acute Patient has had similar episodes of recurrent TIA symptoms characterized by having numbness involving the left arm and leg, without motor weakness, speech difficulty or mental status changes. Currently on dual antiplatelet therapy but continued to have symptoms. Since she already had stroke work up that was negative barring GALI, will go ahead obtaining GALI looking for possible source of emboli. If GALI shows no source of emboli then will discontinue heppra drip and simply continue her on Dual antiplatelet therapy and pursue aggressive risk factor modification. Qualifiers: Transient cerebral ischemia type: unspecified Qualified Code(s): G45.9 - Transient cerebral ischemic attack, unspecified History of Present Illness Chief complaint: left arm and leg numbness HPI: Ms. Mills is a 61 year old female with PMH significant for DM, morbid obesity, HTN, recent history of TIA who developed another episode of left sided numbness. Patient developed left arm and leg numbness lasting about 30 minutes and then resolved. Denies weakness. This similar symptoms also just occurred few days ago and she has had stroke work up including MRI of brain, carotid artery duplex and echocardiogram which were all negative studies. She was added on aspirin 81mg daily in addition of plavix 75mg daily. She is taking both aspirin 81mg daily and plavix 75mg daily now. Due to nature of recurrent TIAs she is started on heparin drip, stroke protocol , while she is getting stroke work up. Past Med Surg Social Fam HX - Past Medical History Medical history: diabetes, hyperlipidemia, hypertension, thyroid disease, TIA Psychiatric history: anxiety, depression - Past Surgical History Surgical History: , cholecystectomy, orthopedic, other - Social History Smoking Status: Former smoker Smokeless Tobacco Status: No Alcohol use: none Drug use: none - Family History Mother Living Status: Hx Family Neurologic Disorders: Yes Father Adopted: No Family Member Ethnicity: Non- Living Status: Hx Family Cardiac Disorders: Yes Hx Family Respiratory Disorders: No Hx Family Cancer: No Hx Family GI Disorders: No Hx Family Endocrine Disorder: No Hx Family Neuromuscular Disorders: No Hx Family Neurologic Disorders: No Hx Family HEENT Disorders: No Hx Family Autoimmune Disorders: No Medications and Allergies Allopurinol [Zyloprim] 300 mg PO DAILY 09/07/16 [History] Carvedilol 3.125 mg PO BID 09/07/16 [History] Ergocalciferol (VITAMIN D2) [Vitamin D2] 50,000 unit PO QWEEK 09/07/16 [History] GlipiZIDE [Glipizide] 10 mg PO BID 09/07/16 [History] Levothyroxine [Synthroid] 25 mcg PO QAM 09/07/16 [History] Linagliptin [Tradjenta] 5 mg PO DAILY 09/07/16 [History] Lovastatin [Mevacor] 20 mg PO HS 09/07/16 [History] Metformin [Glucophage] 500 mg PO BID 09/07/16 [History] Amlodipine [Norvasc] 5 mg PO DAILY #60 tablet 09/10/16 [Rx] Clopidogrel [Plavix] 75 mg PO DAILY #30 tablet 10/25/16 [Rx] Albuterol Sulfate [Proair Hfa] 1 - 2 puff IH Q6H PRN 02/07/17 [History] CloNIDine HCl [Clonidine HCl] 0.3 mg PO BID 02/07/17 [History] Furosemide [Lasix] 40 mg PO Q48H PRN 02/07/17 [History] Ketotifen Fumarate [Zaditor] 1 drop OP BID 02/07/17 [History] Potassium Chloride [K-Tab ER] 20 meq PO BID 02/07/17 [History] Aspirin 81 mg PO DAILY #30 tab.chew 02/08/17 [Rx] Ammonium Lactate [Lac-Hydrin Five] 2 - 3 gm TP BID 02/10/17 [History] Allergies Amoxicillin Allergy (Verified 02/10/17 14:21) Hives codeine Allergy (Verified 02/10/17 14:21) Hives All Systems: A 10-system review of systems was performed and is negative for pertinent findings except as documented above in the HPI. Physical Examination - Vital Signs Vital Signs: Initial Vital Signs Temp Pulse Resp BP Pulse Ox 97.2 F L 86 16 133/80 96 02/10/17 14:18 02/10/17 14:18 02/10/17 14:18 02/10/17 14:18 02/10/17 14:18 - Constitutional General appearance: comfortable - Neurologic Sensorimotor examination: intact Detailed motor examination: full strength in all major muscle groups Motor examination - right side: 5/5: deltoids, biceps, triceps, wrist flexion, wrist extension, real estate firm manager, hip flexors, tibialis Anterior, quadriceps, toe extension (EHL), plantarflexion Motor examination - left side: 55: deltoids, biceps, triceps, wrist flexion, wrist extension, hip flexors, real estate firm manager, quadriceps, tibialis Anterior, toe extension (EHL), plantarflexion Detailed sensory examination: intact Reflex and gait examination: other (Gait not assessed) Reflexes: Biceps: 2+, Triceps: 2+, Brachioradialis: 2+, Patella: 0, Achilles: 0 Mental Status Examination: awake, alert, oriented to person, oriented to place, oriented to time, follows commands appropriately, answers questions appropriately, no agnosia, no aphasia, no aproxia Cranial nerve examination: PERRL, EOMI, visual delcid intact, corneal reflexes brisk symmetrically, sensory to face intact, mastication intact, no facial asymmetry is present, no dysarthria, hearing is intact symmetrically, soft palate elevates bilaterally upon phonation, gag reflex intact, flexes SCM and trapezius muscles symmetrically with full power, tongue protrudes midline, no atrophy or facial fasiculations present Results - Laboratory Findings CBC and BMP: 02/11/17 02:55 02/11/17 02:55 Abnormal lab findings: Abnormal lab results Hgb 10.9 g/dL (11.5-15.4) L 02/11/17 02:55 Hct 35.0 % (35.3-44.9) L 02/11/17 02:55 MCH 27.1 pg (28.0-33.3) L 02/11/17 02:55 MCHC 31.1 g/dL (31.6-35.5) L 02/11/17 02:55 RDW 15.5 % (11.5-14.5) H 02/11/17 02:55 APTT 91.6 Seconds (26.0-36.0) H 02/11/17 06:17 BUN 23 mg/dL (7-20) H 02/11/17 02:55 Glucose 120 mg/dL (70-99) H 02/11/17 02:55 POC Glucose 136 (58-89) H 02/10/17 20:56 Alkaline Phosphatase 182 Units/L (38-126) H 02/11/17 02:55 Albumin 3.2 g/dL (3.5-5.0) L 02/11/17 02:55 Consult Discharge Plan - Plan Referrals: Tunde Martínez MD [Primary Care Provider] -
[2017-02-11] MEDS: Heparin 25,000 UNIT/500 ML D5W 25,000 UNIT/500 ML MLS IVC SCH (08:53)
[2017-02-11] MEDS: Insulin LISPRO 300 UNITS/3 ML VIAL SQ SCH ×4 (08:55→20:14)
[2017-02-11] MEDS: amLODIPine 5 MG TABLET PO SCH (09:12)
[2017-02-11] MEDS: cloNIDine HCl 0.1 MG TABLET PO SCH ×2 (09:12→20:13)
[2017-02-11] MEDS: Aspirin 81 MG TAB.CHEW PO SCH (09:13)
[2017-02-11] MEDS: Levothyroxine 25 MCG TABLET PO SCH (09:13)
[2017-02-11] MEDS: Pantoprazole 40 MG VIAL IVP SCH (09:13)
[2017-02-11] MEDS ORDERED: *HR* Midazolam HCl 2 MG/2 ML VIAL ONE (16:24)
[2017-02-11] MEDS ORDERED: *HR* Midazolam HCl 5 MG/5 ML VIAL IVP ONE (16:25)
[2017-02-11] MEDS ORDERED: *HR* FentaNYL (PF) 250 MCG/5 ML VIAL ONE (16:25)
[2017-02-11] MEDS ORDERED: Naloxone 0.4 MG/ML INJ ONE (16:38)
--- NOTE | 2017-02-11 18:13 | ECHO - Doppler Report ---
Transesophageal Echocardiogram Name: Savita Mills Date of Study: 02/11/2017 Date: 1955 Ht: 64.0in Medical Record#: [id number] Age: 61 Wt: 284.0lb Gender: Female BSA: 2.27 Order #: [id number] [facility] Room #: [id number] Reading Physician: Aryan Taylor DO, EDIS, DEB CABRALES Manufacturing Maintenance Manager: Mar Duffy RVT Ordering Physician: Jenn Borden CNP Primary Physician: Indications: Transient Ischemic Attack, R/O Embolic Source Impressions: LVEF 60%. Normal LV size and function. Right ventricle was normal in size and systolic function. LA appendage is normal in appearance. No thrombus. No evidence of interatrial shunting with agitated saline contrast. No significant valvular dysfunction. No significant plaque formation in the thoracic aorta. No cardiac source of emboli identified. Left Ventricular Wall Motion: Transesophageal Echo Findings All wall segments showed normal motion. Procedure Summary: After explaining the risks, benefits, and alternatives of the procedure to the patient in detail and answering all questions to satisfaction, an informed consent was obtained in writing. The patient was NPO for the six hours prior to the procedure. The patient denied dysphagia, odynophagia, and loose teeth. The patient was monitored with periodic automated blood pressures and continuous pulse oximetry and telemetry. Continuous oxygen was administered by IN. The patient was placed in the full upright position and the posterior oropharynx was anesthetized as above and complete suppression of the gag reflex was obtained. The patient was then placed in the left lateral decubitus position, the neck was flexed, and a bite block was placed in the patient's mouth. IV sedation was administered. Once adequate sedation was achieved, a well-lubricated anteflexed multipoint intraesophageal echocardiographic probe was inserted into the midline posterior oropharynx. Gentle pressure was applied as the patient swallowed and the esophagus was intubated without difficulty. The scope was advanced to the mid esophagus without encountering resistance. Images were obtained from the mid and upper esophagus. Images from the gastric globe obtained. The intra-atrial septum was assessed by color-flow Doppler and agitated saline. The scope was then rotated approximately 180 degrees and withdrawn, visualizing the length of the aorta. The scope was then slowly withdrawn as the patient was continually suctioned. The patient tolerated the procedure well. Medication Given: Time Medication Dose Units Route Medication per event staff Contrast Type Amount Agitated saline 10 Findings: Study Quality * Technically adequate exam. ECG Findings * Normal sinus rhythm with PACs. Left Ventricle * LVEF 60%. * Normal LV size and function. Right Ventricle * Right ventricle was normal in size and systolic function. Left Atrium * Moderately dilated left atrium. * LA appendage is normal in appearance. No thrombus. * The LA appendage flow velocity is normal. Right Atrium * Mildly dilated right atrium. Interatrial Septum * No evidence of interatrial shunting with agitated saline contrast. Aortic Valve * The aortic valve is tricuspid. * Trace aortic regurgitation. * No aortic stenosis. Mitral Valve * Mild mitral annular calcification. * Trace mitral regurgitation. * No mitral stenosis. Tricuspid Valve * Normal structure and function. * No tricuspid regurgitation. * RVSP not obtained due to lack of TR. Pulmonic Valve * Not well visualized. Aorta * The aortic root is not dilated. No significant plaque formation in the thoracic aorta. Pericardium * No pericardial effusion. Pulmonary Artery * Normal pulmonary artery. History: Hypertension Diabetes Hypercholesteremia Family History of CAD Previous Echo02/08/2017 BP 148 / 68 Updated by Aryan Taylor DO, FAC[place]yenne, SAMRA, DEB on 02/11/2017 6:06:22 PM electronically signed on 02/11/2017 6:09:06 PM with status of Final Wall Motion Bowling: 1=Normal, 2=Hypokinesis, 3=Akinesis, 4=Dyskinesis, 5=Aneurysmal, 6=Hyperkinetic, X=Not Visualized (Blank)=Missing Wall MotionIndex GALI Total of all scored delcid 17 Index Divided by ---- = 1 Total number of delcid scored 17
[2017-02-11] MEDS ORDERED: *HR* LORazepam 2 MG/ML VIAL ONE (18:15)
[2017-02-11] MEDS: *HR* LORazepam 2 MG/ML VIAL IVP ONE ×2 (18:18→18:26)
[2017-02-11 18:40] LABS: INR 1.1; Prothrombin Time 11.6 Seconds (9.4-12.1)
[2017-02-11 18:43] LABS: Activated Partial Thrombo Time 92.3 Seconds (26.0-36.0)
--- NOTE | 2017-02-11 18:50 | Internal Med Progress Note ---
Date of Encounter: 02/11/17 Time of Encounter: 18:00 - Assessment and plan (1) TIA (transient ischemic attack) Current Visit: No Status: Resolved Assessment and plan: Patient currently denies any numbness or tingling. She does complain of lightheadedness or dizziness. No focal neurological weakness is present on examination. She had a full workup on 02/08/17 with negative MRI and unremarkable echocardiogram. MRA of head and neck pending. GALI unremarkable. Likely discharge tomorrow pending clinical outcomes. We will continue her heparin drip ordered per neurology until results of MRA are obtained. Neurology also recommended continuing her aspirin and Plavix. OT/PT consultations pending. ITS Impressions Head CT 02/10/17 14:31 IMPRESSION: No acute intracranial abnormality. D/ / Liban Pillai MD / Liban Pillai MD Interpreting Provider: Liban Pillai MD Qualifiers: Transient cerebral ischemia type: unspecified Qualified Code(s): G45.9 - Transient cerebral ischemic attack, unspecified (2) Numbness and tingling in left upper extremity Current Visit: No Status: Resolved (3) DM2 (diabetes mellitus, type 2) Current Visit: No Status: Chronic Assessment and plan: Controlled, A1c 5.3%. Continue sliding scale while admitted (4) History of hypertension Current Visit: No Status: Chronic Assessment and plan: Controlled with her regular home medications of carvedilol 3.125 mg twice a day and amlodipine 5 mg daily. Continue to trend. (5) DVT prophylaxis Current Visit: No Status: Acute Assessment and plan: Currently on a heparin drip with pending MRA (6) Morbid obesity with BMI of 45.0-49.9, adult Current Visit: No Status: Chronic (7) History of hypothyroidism Current Visit: Yes Status: Chronic Assessment and plan: TSH normal - Subjective Interval history: Patient seen and examined. On examination, patient sitting upright in bed conversing with her family. She continues to complain of dizziness and lightheadedness but now denies numbness or tingling to any of her extremities. She is alert and oriented 3 and denies pain. - Constitutional Vitals: Temp Pulse Resp BP Pulse Ox 97.5 F L 58 16 138/81 95 02/11/17 15:26 02/11/17 15:26 02/11/17 15:26 02/11/17 15:26 02/11/17 15:26 General appearance: Present: A&O X 3, morbidly obese, pleasant, answers questions appropriately - Head Head exam: Present: atraumatic, normocephalic - Eye Eye exam: Present: PERRL, conjuntiva pink, sclera anicteric Pupils: Present: PERRL - Neck Neck exam general surgery: Present: supple, trachea midline. Absent: lymphadenopathy - Respiratory Respiratory exam: Present: decreased breath sounds. Absent: accessory muscle use, rales, respiratory distress, rhonchi, wheezes - Cardiovascular Cardiovascular exam: Present: RRR, +S1, +S2. Absent: diastolic murmur, gallop, rubs, systolic murmur - GI/Abdominal GI/Abdominal exam: Present: normal bowel sounds, soft, no peritoneal signs. Absent: distended, tenderness - Extremities Exam Extremities exam: Present: warm, radial pulses palpable and symetrical. Absent : calf tenderness, cyanotic, pedal edema - Neurological Exam Neurological exam: Present: alert, CN II-XII intact, oriented X3, no focal deficits, strengths equal and symetr throughout. Absent: pronater drift, facial droop, speech deficit - Skin Skin exam: Present: dry, intact, normal color, warm Internal Medicine: Result - Labs CBC & Chem 7: 02/11/17 02:55 02/11/17 02:55 Labs: Short CBC 02/11/17 Range/Units 02:55 WBC 8.8 (4.3-11.1) K/mcL Hgb 10.9 L (11.5-15.4) g/dL Hct 35.0 L (35.3-44.9) % Plt Count 272 (140-400) K/mcL Neutrophils # 5.6 (1.6-8.9) K/mcL BMP 02/11/17 02:55 Sodium 141 Potassium 4.2 Chloride 107 Carbon Dioxide 24 BUN 23 H Creatinine 0.91 Glucose 120 H Calcium 9.9 Liver Function 02/11/17 Range/Units 02:55 Total Bilirubin 0.3 (0.2-1.2) mg/dL AST 12 (5-34) Units/L ALT 18 (0-55) Units/L Alkaline Phosphatase 182 H (38-126) Units/L Albumin 3.2 L (3.5-5.0) g/dL - ABG Interpretation ABG results: PT/INR, D-dimer PT 11.0 Seconds (9.4-12.1) 02/10/17 14:39 Consult Discharge Plan - Plan Referrals: Tunde Martínez MD [Primary Care Provider] -
[2017-02-11] MEDS: Insulin DETEMIR 100 UNIT/ML X5UNITS SQ SCH (20:13)
[2017-02-12] MEDS: Heparin 25,000 UNIT/500 ML D5W 25,000 UNIT/500 ML MLS IVC SCH (01:11)
[2017-02-12] MEDS: Acetaminophen 325 MG TABLET PO PRN (06:23)
[2017-02-12] MEDS: amLODIPine 5 MG TABLET PO SCH (08:20)
[2017-02-12] MEDS: Aspirin 81 MG TAB.CHEW PO SCH (08:21)
[2017-02-12] MEDS: Levothyroxine 25 MCG TABLET PO SCH (08:21)
[2017-02-12] MEDS: Pantoprazole 40 MG VIAL IVP SCH (08:22)
[2017-02-12] MEDS: cloNIDine HCl 0.1 MG TABLET PO SCH (08:22)
[2017-02-12] MEDS: Insulin LISPRO 300 UNITS/3 ML VIAL SQ SCH ×2 (08:22→11:52)
[2017-02-12 10:49] VITALS: BP 118/64
--- NOTE | 2017-02-12 12:39 | Discharge Summary ---
Date of Encounter: 02/12/17 Time of Encounter: 11:30 - Discharge Diagnosis (1) TIA (transient ischemic attack) Priority: Primary Status: Resolved Qualifiers: Transient cerebral ischemia type: unspecified Qualified Code(s): G45.9 - Transient cerebral ischemic attack, unspecified (2) Numbness and tingling in left upper extremity Priority: Primary Status: Resolved (3) DM2 (diabetes mellitus, type 2) Priority: Secondary Status: Chronic Comments: Controlled, A1c 5.3%. Follow-up outpatient (4) History of hypertension Priority: Secondary Status: Chronic Comments: Controlled with her regular home medications of carvedilol 3.125 mg twice a day and amlodipine 5 mg daily. Continue to check blood pressure daily, keep a log, and follow-up outpatient (5) DVT prophylaxis Priority: Primary Status: Acute Comments: was on a heparin gtt until just before discharge. (6) Morbid obesity with BMI of 45.0-49.9, adult Priority: Secondary Status: Chronic (7) History of hypothyroidism Priority: Secondary Status: Chronic Comments: TSH normal - Discharge Medications Home Medications: Allopurinol [Zyloprim] 300 mg PO DAILY 09/07/16 [History] Carvedilol 3.125 mg PO BID 09/07/16 [History] Ergocalciferol (VITAMIN D2) [Vitamin D2] 50,000 unit PO QWEEK 09/07/16 [History] GlipiZIDE [Glipizide] 10 mg PO BID 09/07/16 [History] Levothyroxine [Synthroid] 25 mcg PO QAM 09/07/16 [History] Linagliptin [Tradjenta] 5 mg PO DAILY 09/07/16 [History] Lovastatin [Mevacor] 20 mg PO HS 09/07/16 [History] Metformin [Glucophage] 500 mg PO BID 09/07/16 [History] Amlodipine [Norvasc] 5 mg PO DAILY #60 tablet 09/10/16 [Rx] Clopidogrel [Plavix] 75 mg PO DAILY #30 tablet 10/25/16 [Rx] Albuterol Sulfate [Proair Hfa] 1 - 2 puff IH Q6H PRN 02/07/17 [History] CloNIDine HCl [Clonidine HCl] 0.3 mg PO BID 02/07/17 [History] Furosemide [Lasix] 40 mg PO Q48H PRN 02/07/17 [History] Ketotifen Fumarate [Zaditor] 1 drop OP BID 02/07/17 [History] Potassium Chloride [K-Tab ER] 20 meq PO BID 02/07/17 [History] Aspirin 81 mg PO DAILY #30 tab.chew 02/08/17 [Rx] Ammonium Lactate [Lac-Hydrin Five] 2 - 3 gm TP BID 02/10/17 [History] Allergies/Adverse Reactions: Allergies Amoxicillin Allergy (Verified 02/10/17 14:21) Hives codeine Allergy (Verified 02/10/17 14:21) Hives Procedures/tests Complete & Pending: Procedures Performed prior 72 hours Category Date Time Status MR angio head wo con [MR] Routine MRI 02/11/17 05:14 Completed MR angio neck wo/w con [MR] Routine MRI 02/11/17 05:14 Completed EV GALI transesophageal echo Routine Y 02/11/17 08:53 Completed Date of admission: 02/10/17 18:33 Primary care physician: Tunde Martínez Consults: 02/10/17 23:11 Consult to Occupational Therapy [CONS] Routine Comment: Evaluate, develop and implement POC Consult to Physical Therapy [CONS] Routine Comment: Evaluate, develop and implement POC Discharging clinician: Jenn Borden Anticipated date of discharge: 02/12/17 - Patient Status Disposition: Home, Self-Care Condition: Fair Functional capacity at discharge: independent ambulation Overall status at discharge: patient is back to baseline - Discharge Instructions Follow Up With: Tunde Martínez MD [Primary Care Provider] - Additional Instructions: Follow-up with primary care provider within one to 2 weeks - Diet and Activity Activity: increase activity as tolerated Diet: diabetic diet, low fat, low cholesterol, low salt diet Hospital course: Ms. Mills is a 61 year old female with past medical history of controlled [id number] diabetes, hypertension, hyperlipidemia, hypothyroidism. Patient presented to the emergency department chief complaint left arm numbness and tingling as well as left foot numbness and tingling and tightness in her toes. Patient denied having a headache, changes in her visiting, feeling lightheaded, or syncope. Patient stating she has had a upper respiratory tract infection recently but otherwise was in her normal state of health. Of note, she said 2 prior episodes similar to this that were improved in her opinion with prior and resolve spontaneously. Of note, she was seen 2 days prior to this presentation for the same symptoms and had a complete CVA workup to include an unremarkable echo, carotid, head CT and brain MRI. Her symptoms had resolved and she was discharged home. She returned 2 days later for the same symptoms that also resolved prior to presentation. Workup in the emergency department unremarkable. Head CT negative. Patient was started on a heparin drip at neurology's recommendation. Patient was admitted to the hospitalist service for further evaluation and management. Transthoracic echocardiogram was negative, neurology recommended a transesophageal echocardiogram which was also unremarkable and revealed an ejection fraction 60% and did not show any cardiac source of emboli. Her diabetes is well controlled as is her blood pressure. She remained asymptomatic throughout this admission with no focal neurological weaknesses. She had an upright and steady gait. Unclear causation of her symptoms. When told that her stroke workup was negative, patient stating she was aware that this would be the case given that she had already prayed for her symptoms to resolve. She was seen and evaluated by occupational and physical therapy both of whom surmised she had no needs. Neurology recommended continuing her aspirin and Plavix. MRA of head and neck unremarkable and her heparin drip was discontinued. She was discharged home in stable condition with close outpatient follow-up recommended. ITS Impressions Head CT 02/10/17 14:31 IMPRESSION: No acute intracranial abnormality. D/ / Liban Pillai MD / Liban Pillai MD Interpreting Provider: Liban Pillai MD Head MRA 02/11/17 05:14 IMPRESSION: Unremarkable MRA of the head. D/ / Price Gonzalez MD / Price Gonzalez MD Interpreting Provider: Price Gonzalez MD Neck MRA 02/11/17 05:14 IMPRESSION: Unremarkable MRA of the neck. D/ / Price Gonzalez MD / Price Gonzalez MD Interpreting Provider: Price Gonzalez MD Transesophageal echocardiogram and presents: LVEF 60%. Normal LV size and function. Right ventricle was normal in size and function. LAF appendage is normal in appearance. No thrombus. No evidence of intra-atrial shunting with agitated saline contrast. No significant valvular dysfunction. No significant plaque formation in the thoracic aorta. No cardiac source of emboli identified. - Time Spent with Patient Total time spent providing and/or coordinating discharge services: - Constitutional Vitals: Temp Pulse Resp BP Pulse Ox 97.6 F 84 15 118/64 94 L 02/12/17 10:48 02/12/17 10:48 02/12/17 10:48 02/12/17 10:48 02/12/17 10:48 General appearance: Present: A&O X 3, morbidly obese, pleasant, no acute distress, answers questions appropriately - Head Head exam: Present: atraumatic, normocephalic - Eye Eye exam: Present: PERRL, conjuntiva pink, sclera anicteric Pupils: Present: PERRL - Neck Neck exam general surgery: Present: supple, trachea midline. Absent: lymphadenopathy - Respiratory Respiratory exam: Present: CTAB. Absent: accessory muscle use, rales, respiratory distress, rhonchi, wheezes - Cardiovascular Cardiovascular exam: Present: RRR, +S1, +S2. Absent: diastolic murmur, gallop, rubs, systolic murmur - GI/Abdominal GI/Abdominal exam: Present: normal bowel sounds, soft, no peritoneal signs. Absent: distended, tenderness - Extremities Exam Extremities exam: Present: warm, radial pulses palpable and symetrical. Absent : calf tenderness, cyanotic - Neurological Exam Neurological exam: Present: alert, CN II-XII intact, normal gait, oriented X3, no focal deficits, strengths equal and symetr throughout. Absent: pronater drift, facial droop, speech deficit - Skin Skin exam: Present: dry, intact, normal color, warm
[2017-02-13] MEDS ORDERED: Levothyroxine 25 MCG TABLET PO SCH (06:30)
== END 2017-02-12 13:30 | disposition home or self-care (01) ==
LOC: 3BNU 14:12 → EMEROO 14:12 → 3BNU 19:23
PROVIDERS: ADMIT Nurse Practitioner Family; ATTEND Nurse Practitioner Family

== ENCOUNTER 2018-07-14 15:24 | Observation (INO) ==
--- NOTE | 2018-07-14 16:19 | Emergency Department Note ---
Disposition Clinical Impression: Chest pain Qualifiers: Chest pain type: unspecified Qualified Code(s): R07.9 - Chest pain, unspecified Edema Qualifiers: Edema type: unspecified Qualified Code(s): R60.9 - Edema, unspecified Disposition: Admitted As Inpatient Condition: Fair Time of Disposition: 19:56 General Adult HPI - General Chief complaint: ED Chest Pain Stated complaint: Sore muscle in chest Time Seen by Provider: 07/14/18 16:04 Nursing Notes Reviewed: Yes Vital Signs Reviewed: Yes - History of Present Illness HPI Narrative: Female patient presents emergency department complaining of a chest soreness. It radiates across her chest. She states this is been going on for around 3 days. She was attempting to rub rubbing alcohol on her feet to get the soreness out whenever the pain started. She does report a chronic cough. She thinks that this may be secondary to bronchitis. She denies any fevers. She does report swelling to her lower extremities however she is on Lasix and takes this whenever the swelling gets bad. She has never had a heart attack but states she has had a stress test previously. Patient has a BMI of 52. She appears to be resting comfortably in bed. She denies any nausea vomiting or diarrhea. House work makes the pain worse. She cannot remember an injury that lesyl have caused her soreness. The pain is not reproducable to palpation. She does not appear in distress while she is sitting in bed, however she states that the pain is still there. Pain Scale: 10 - Related Data Home Medications Medication Instructions Recorded Confirmed Allopurinol [Zyloprim] 300 mg PO DAILY 09/07/16 07/14/18 Levothyroxine [Synthroid] 25 mcg PO QAM 09/07/16 07/14/18 Lovastatin [Mevacor] 20 mg PO HS 09/07/16 07/14/18 metFORMIN [Glucophage] 500 mg PO BID 09/07/16 07/14/18 Ammonium Lactate [Lac-Hydrin Five] 2 - 3 gm TP BID 02/10/17 07/14/18 Diltiazem HCl [Diltiazem 12Hr ER] 120 mg PO DAILY 06/09/18 07/14/18 Furosemide [Lasix] 20 mg PO DAILY 06/09/18 07/14/18 Lisinopril [Zestril] 40 mg PO DAILY 06/09/18 07/14/18 Carvedilol 12.5 mg PO BID 07/14/18 07/14/18 Linagliptin [Tradjenta] 5 mg PO DAILY 07/14/18 07/14/18 Previous Rx's Medication Instructions Recorded Aspirin 81 mg PO DAILY #30 tab.chew 02/08/17 Loratadine [Claritin] 10 mg PO DAILY #20 tablet 06/29/18 Allergies Allergy/AdvReac Type Severity Reaction Status Date / Time Amoxicillin Allergy Hives Verified 06/29/18 13:20 codeine Allergy Hives Verified 06/29/18 13:20 Sulfa (Sulfonamide AdvReac Nausea Verified 06/29/18 13:20 Antibiotics) All systems ED: reviewed and negative except as stated. Constitutional: Denies: fever, chills ENT ED: Denies: congestion Cardiovascular: Reports: chest pain. Denies: syncope Respiratory: Reports: cough, sputum production. Denies: dyspnea Gastrointestinal: Denies: abdominal pain, nausea, vomiting, diarrhea, hematemesis, melena, hematochezia Musculoskeletal: Denies: back pain, neck pain Integumentary: Denies: rash, abrasion Neurological: Denies: headache, weakness Past Medical History - Past Medical History Attestation: Yes The following information was validated with the patient. Source: patient Medical history: Reports: diabetes, hypertension, other Surgical history: Reports: , cholecystectomy, orthopedic, other Psychiatric history: Reports: anxiety, depression DAM OPERATOR history: Reports: no DAM OPERATOR history - Social History Smoking Status: Never smoker Smokeless Tobacco Status: No Alcohol use: Reports: none Drug use: Reports: none Physical Exam - General Limitations: no limitations General appearance: alert, in no apparent distress - Head Head exam: atraumatic, normocephalic, normal inspection - Eye Eye exam: Present: normal appearance, PERRL, EOMI - ENT ENT exam: normal exam, normal oropharynx, mucous membranes moist - Neck Neck exam: Present: normal inspection, full ROM, trachea midline - Chest Chest inspection: Present: normal inspection, symmetric chest wall rise. Absent : tenderness - Respiratory Respiratory exam: Present: normal lung sounds bilaterally. Absent: respiratory distress, accessory muscle use - Cardiovascular Cardiovascular exam: Present: regular rate, normal rhythm, normal heart sounds - Abdominal Exam Abdominal exam: Present: soft, Non-Tender. Absent: tenderness, distention, guarding, rebound, rigidity, organomegaly - Extremities Exam Extremities exam: Present: normal inspection, full ROM, pedal edema (mild pitting to mid tibias). Absent: tenderness - Back Exam Back exam: Present: normal inspection, full ROM. Absent: tenderness - Neurological Exam Neurological exam: Present: alert, oriented X3 - Psychiatric Psychiatric exam: Present: normal affect, normal mood - Skin Skin exam: Present: warm, dry, intact, normal color. Absent: rash Course Course Narrative: pt pain gets worse when she is trying to do house work. She does describe it as a soreness. Present for 3 days. Pt is very pleasant and states that she has had a stress test. However this was several years ago. She does have a history of diabetes and high cholesterol. Pt has a first degree AV block on EKG. Troponin negative. We did do a CTA of Pt chest to rule out dissection. This was negative however did show a right adnexal mass. Pt does not have any abdominal pain, however her abd exam is inhibited by her body habitus. we will admit Pt to the hospital for serial troponins and further cardiac evaluation. Vital Signs Temperature 98.0 F 07/14/18 15:29 Pulse Rate 64 07/14/18 15:29 Respiratory Rate 12 07/14/18 15:29 Blood Pressure 194/89 07/14/18 15:29 O2 Sat by Pulse Oximetry 99 07/14/18 15:29 Temperature 98.0 F 07/14/18 16:56 Pulse Rate 88 07/14/18 19:30 Respiratory Rate 16 07/14/18 20:35 Blood Pressure 170/95 07/14/18 20:35 O2 Sat by Pulse Oximetry 97 07/14/18 19:30 Oxygen Delivery Oxygen Delivery Room Air Medical Decision Making - Medical Records Medical records reviewed: Yes I reviewed the patient's medical records. - Lab Data Lab results reviewed: Yes I reviewed the patient's lab results. Result diagrams: 07/14/18 16:54 07/14/18 16:54 Lab Results 07/14/18 07/14/18 07/14/18 Range/Units 16:54 16:54 16:54 WBC 10.0 (4.3-11.1) K/mcL RBC 4.39 (3.82-4.97) M/mcL Hgb 12.1 (11.5-15.4) g/dL Hct 37.7 (35.3-44.9) % MCV 85.9 (83.0-100.0) fL MCH 27.6 L (28.0-33.3) pg MCHC 32.1 (31.6-35.5) g/dL RDW 15.7 H (11.5-14.5) % Plt Count 293 (140-400) K/mcL MPV 9.4 (9.4-12.4) fL Sodium 141 (136-145) mEq/L Potassium 3.4 L (3.5-5.1) mEq/L Chloride 103 (98-107) mEq/L Carbon Dioxide 31 H (23-29) mEq/L BUN 19 (8-23) mg/dL Creatinine 0.93 (0.60-1.20) mg/dL Est GFR ( Amer) > 60 (> 60) Est GFR (Non-Af Amer) > 60 (> 60) BUN/Creatinine Ratio 20 (6-26) Glucose 90 (70-105) mg/dL Calculated Osmolality 294 (280-300) Calcium 10.0 (8.6-10.3) mg/dL Troponin I < 0.03 (< 0.04) ng/mL B-Natriuretic Peptide 21 (Less than 100) pg/mL TSH 1.309 (0.340-5.600) mcIU/mL - Radiology Data Radiology results reviewed: Yes I reviewed the patient's radiology results. Chest X-Ray 07/14/18 15:32 IMPRESSION: No acute cardiopulmonary disease. D/ / 07/14/2018 16:52:29 Cornelius Preciado MD / perry Interpreting Provider: Cornelius Preciado MD Abdomen/Pelvis CTA 07/14/18 17:51 IMPRESSION: No aneurysm or acute aortic abnormality identified. Mild calcified atheromatous plaque. Complex 13 cm cystic right adnexal mass. Further evaluation with ultrasound is recommended when clinically appropriate. No acute abnormality identified in the chest, abdomen or pelvis. Chronic findings as above. D/ / Luther Dubois / Luther Dubois Interpreting Provider: Luther Dubois Chest CTA 07/14/18 17:51 IMPRESSION: No aneurysm or acute aortic abnormality identified. Mild calcified atheromatous plaque. Complex 13 cm cystic right adnexal mass. Further evaluation with ultrasound is recommended when clinically appropriate. No acute abnormality identified in the chest, abdomen or pelvis. Chronic findings as above. D/ / Luther Dubois / Luther Dubois Interpreting Provider: Luther Dubois - EKG Data EKG #1 EKG attestation: Yes I reviewed and interpreted this EKG. EKG results narrative: Normal sinus rhythm with a first-degree block at a rate of 76. OK interval is 222. QRS duration is 137. QT is 460. QTC is 447. No signs of acute ischemia. No previous EKG to compare to. Attestation Statement - Attestation Attestation: I, Brennen Sewell DO, examined this patient [id number] and my medical decision-making was reviewed with Dr. Vanesa Leggett, Resident Physician. I agree with the documented findings, disposition and treatment plan as described except to the extent set forth below. Please see my progress notes for details. Heart Score - Score History: Slightly Suspicious EKG: Non Specific repolarisation Disturbance Age: 45-65 Risk Factors: 1-2 risk factors Troponin: Less than normal limit HEART Score Total: 3
[2018-07-14 17:06] LABS: Hematocrit 37.7 % (35.3-44.9); Hemoglobin 12.1 g/dL (11.5-15.4); Mean Corpuscular HGB Conc 32.1 g/dL (31.6-35.5); Mean Corpuscular Hemoglobin 27.6 pg (28.0-33.3); Mean Corpuscular Volume 85.9 fL (83.0-100.0); Mean Platelet Volume 9.4 fL (9.4-12.4); Platelet Count 293 K/mcL (140-400); Red Blood Count 4.39 M/mcL (3.82-4.97); Red Cell Distribution Width 15.7 % (11.5-14.5)
[2018-07-14 17:30] LABS: BUN/Creatinine Ratio 20 (6-26); Blood Urea Nitrogen 19 mg/dL (8-23); Carbon Dioxide 31 mEq/L (23-29); Chloride 103 mEq/L (98-107); Glucose 90 mg/dL (70-105); Osmolality,Calculated 294 (280-300); Potassium 3.4 mEq/L (3.5-5.1); Sodium 141 mEq/L (136-145); Troponin I < 0.03 ng/mL (< 0.04); eGFR For Non-African Americans > 60 (> 60)
[2018-07-14 17:44] LABS: Thyroid Stimulating Hormone 1.309 mcIU/mL (0.340-5.600)
[2018-07-14] MEDS ORDERED: Aspirin 325 MG TABLET PO ONE (17:49)
[2018-07-14] MEDS ORDERED: Isovue-370 500 ML INFUS..BTL IV ONE ×2 (17:51→18:56)
--- NOTE | 2018-07-14 18:00 | Emergency Department Note ---
Disposition Clinical Impression: Edema Chest pain Qualifiers: Chest pain type: unspecified Qualified Code(s): R07.9 - Chest pain, unspecified Disposition: Admitted As Inpatient Condition: Fair Time of Disposition: 20:26 General Adult HPI - General Chief complaint: ED Chest Pain Stated complaint: Sore muscle in chest Time Seen by Provider: 07/14/18 16:04 Source: patient Limitations: no limitations - History of Present Illness Pain Scale: 10 - Related Data Home Medications Medication Instructions Recorded Confirmed Allopurinol [Zyloprim] 300 mg PO DAILY 09/07/16 07/14/18 Levothyroxine [Synthroid] 25 mcg PO QAM 09/07/16 07/14/18 Lovastatin [Mevacor] 20 mg PO HS 09/07/16 07/14/18 metFORMIN [Glucophage] 500 mg PO BID 09/07/16 07/14/18 Ammonium Lactate [Lac-Hydrin Five] 2 - 3 gm TP BID 02/10/17 07/14/18 Diltiazem HCl [Diltiazem 12Hr ER] 120 mg PO DAILY 06/09/18 07/14/18 Furosemide [Lasix] 20 mg PO DAILY 06/09/18 07/14/18 Lisinopril [Zestril] 40 mg PO DAILY 06/09/18 07/14/18 Carvedilol 12.5 mg PO BID 07/14/18 07/14/18 Linagliptin [Tradjenta] 5 mg PO DAILY 07/14/18 07/14/18 Previous Rx's Medication Instructions Recorded Aspirin 81 mg PO DAILY #30 tab.chew 02/08/17 Loratadine [Claritin] 10 mg PO DAILY #20 tablet 06/29/18 Allergies Allergy/AdvReac Type Severity Reaction Status Date / Time Amoxicillin Allergy Hives Verified 06/29/18 13:20 codeine Allergy Hives Verified 06/29/18 13:20 Sulfa (Sulfonamide AdvReac Nausea Verified 06/29/18 13:20 Antibiotics) Constitutional: Denies: fever, chills ENT ED: Denies: congestion Cardiovascular: Reports: chest pain. Denies: syncope Respiratory: Reports: cough, sputum production. Denies: dyspnea Gastrointestinal: Denies: abdominal pain, nausea, vomiting, diarrhea, hematemesis, melena, hematochezia Musculoskeletal: Denies: back pain, neck pain Integumentary: Denies: rash, abrasion Neurological: Denies: headache, weakness Past Medical History - Past Medical History Medical history: Reports: diabetes, hypertension, other Surgical history: Reports: , cholecystectomy, orthopedic, other Psychiatric history: Reports: anxiety, depression RECRUITMENT DIRECTOR history: Reports: no RECRUITMENT DIRECTOR history - Social History Smoking Status: Never smoker Smokeless Tobacco Status: No Alcohol use: Reports: none Drug use: Reports: none Physical Exam - General Limitations: no limitations General appearance: alert, in no apparent distress Course Vital Signs Temperature 98.0 F 07/14/18 15:29 Pulse Rate 64 07/14/18 15:29 Respiratory Rate 12 07/14/18 15:29 Blood Pressure 194/89 07/14/18 15:29 O2 Sat by Pulse Oximetry 99 07/14/18 15:29 Temperature 98.0 F 07/14/18 16:56 Pulse Rate 86 07/14/18 16:56 Respiratory Rate 12 07/14/18 16:56 Blood Pressure 180/92 07/14/18 16:56 O2 Sat by Pulse Oximetry 100 07/14/18 16:56 Oxygen Delivery Oxygen Delivery Room Air Medical Decision Making - Lab Data Result diagrams: 07/14/18 16:54 07/14/18 16:54 Lab Results 07/14/18 07/14/18 07/14/18 Range/Units 16:54 16:54 16:54 WBC 10.0 (4.3-11.1) K/mcL RBC 4.39 (3.82-4.97) M/mcL Hgb 12.1 (11.5-15.4) g/dL Hct 37.7 (35.3-44.9) % MCV 85.9 (83.0-100.0) fL MCH 27.6 L (28.0-33.3) pg MCHC 32.1 (31.6-35.5) g/dL RDW 15.7 H (11.5-14.5) % Plt Count 293 (140-400) K/mcL MPV 9.4 (9.4-12.4) fL Sodium 141 (136-145) mEq/L Potassium 3.4 L (3.5-5.1) mEq/L Chloride 103 (98-107) mEq/L Carbon Dioxide 31 H (23-29) mEq/L BUN 19 (8-23) mg/dL Creatinine 0.93 (0.60-1.20) mg/dL Est GFR ( Amer) > 60 (> 60) Est GFR (Non-Af Amer) > 60 (> 60) BUN/Creatinine Ratio 20 (6-26) Glucose 90 (70-105) mg/dL Calculated Osmolality 294 (280-300) Calcium 10.0 (8.6-10.3) mg/dL Troponin I < 0.03 (< 0.04) ng/mL B-Natriuretic Peptide 21 (Less than 100) pg/mL TSH 1.309 (0.340-5.600) mcIU/mL Attestation Statement - Attestation Attestation: I, Brennen Sewell DO, examined this patient [id number] and my medical decision-making was reviewed with Dr. Vanesa Leggett, Resident Physician. I agree with the documented findings, disposition and treatment plan as described except to the extent set forth below. Please see my progress notes for details. 59-year-old female presents to the emergency room for evaluation of chest tightness and pain. She has had these symptoms for approximately 3 days. She has any trauma or injuries. She is morbidly obese. She denies any history of coronary artery disease or myocardial infarction. Currently she is denying chest pain shortness of breath headache vision changes nausea vomiting or diarrhea. Denies any fevers or chills. Denies any new medications trauma or injury. Patient does have what she describes as tightness intermittently across the chest wall that is worse when she lifts her legs up off the bed. At this time she feels like she is asymptomatic as long she does not move her arms. On physical exam this is a morbidly obese female with truncal obesity. Her heart is regular her lungs are clear. She has no signs of stridor or trismus. She has full range of motion of the neck. She does have a short neck with a heavy thick resident dictation this time but otherwise does not show any acute signs of decompensation for respiratory or cardiac related etiology. Abdomen is soft nontender nondistended with no guarding no rigidity or peritoneal symptoms. Patient was screening evaluation a chest x-ray EKG CBC chemistry and troponin completed this time. Patient's blood pressure is elevated but otherwise her vital signs are unremarkable. Initial concern is for cardiac etiology versus vascular or pulmonary related symptom presentation. The detailed workup will be completed at this time the disposition will be determined. Expect patient will require admission. Currently no aggressive intervention is required. Aspirin will be given along with pain medication as needed. Currently the patient is not describing anginal-like pain. See detailed documentation the physical exam, medical intervention, medical decision -making and disposition in the resident physician's note. No critical care pad the patient's treatment course of this time. 2000 Patient had a negative CT angiography the chest and abdomen for dissection or aneurysm. Patient is still having intermittent symptoms and discomfort. Patient has stable vital signs. Recommendation for admission were discussed for admission secondary to intermittent chest discomfort and pain along with the symptom and a presentation of her dyspnea exertional pain and peripheral edema. No other acute issues noted this time patient was provided with aspirin subhepatic control. Admission process to be completed at this point
[2018-07-15] MEDS ORDERED: D5% in Water 1,000 ML IVC PRN (02:21)
[2018-07-15] MEDS ORDERED: Dextrose Gel 15 GM/37.5 ML TUBE PO PRN ×2 (02:21)
[2018-07-15] MEDS ORDERED: *HR* Dextrose 50 % in Water (Syg) 50 ML SYRINGE IVP PRN (02:21)
[2018-07-15] MEDS ORDERED: Naloxone 0.4 MG/ML INJ IVP PRN (02:21)
--- NOTE | 2018-07-15 03:53 | Internal Med History&Physical ---
Date of Encounter: 07/15/18 Time of Encounter: 02:30 Internal Medicine - H&P: HPI Chief complaint: chest pain Admitted From: Emergency Dept Plans for Post Hospital Care: Home History of present illness: Ms. Mills is a 62 year old female who presents with a four-day history with chest pain, pressure, and shortness of breath. Because of persistence of symptoms and worsening pain, she came to the ER for evaluation. Workup was negative, which included CT angiogram of the abdomen and chest to rule out aortic dissection. She was escalated admitted to hospitalist service. Upon my assessment patient, patient is resting in bed comfortably without chest pain. She states that she was having this chest pain off and on, especially with exertion. She also develops some dyspnea and palpitations with exertion. She denies any diaphoresis. She denies any heartburn, nausea, vomiting, or diarrhea. Cardiac risk factors include diabetes, morbid obesity, and family history. Past Med Surg Social Fam HX - Past Medical History Attestation: Yes The following information was validated with the patient. Source: patient, old records reviewed Medical history: diabetes, hypertension, other Additional medical history: Hx of chronic bronchitis. Psychiatric history: anxiety - Past Surgical History Surgical History: , cholecystectomy, orthopedic, other Additional surgical history: Right ankle surgery, left knee and tubal. - Social History Smoking Status: Former smoker Smokeless Tobacco Status: No Alcohol use: none Drug use: none Current living situation: Home Activity Level: Independent ambulation Recent Out of Country Travel Within the Last 8 Weeks: No - Family History Mother Living Status: Hx Family Neurologic Disorders: Yes Father Adopted: No Family Member Ethnicity: Non- Living Status: Hx Family Cardiac Disorders: Yes Hx Family Respiratory Disorders: No Hx Family Cancer: No Hx Family GI Disorders: No Hx Family Endocrine Disorder: No Hx Family Neuromuscular Disorders: No Hx Family Neurologic Disorders: No Hx Family HEENT Disorders: No Hx Family Autoimmune Disorders: No Internal Medicine - H&P: Meds Allopurinol [Zyloprim] 300 mg PO DAILY 09/07/16 [History] Levothyroxine [Synthroid] 25 mcg PO QAM 09/07/16 [History] Lovastatin [Mevacor] 20 mg PO HS 09/07/16 [History] metFORMIN [Glucophage] 500 mg PO BID 09/07/16 [History] Aspirin 81 mg PO DAILY #30 tab.chew 02/08/17 [Rx] Ammonium Lactate [Lac-Hydrin Five] 2 - 3 gm TP BID 02/10/17 [History] Diltiazem HCl [Diltiazem 12Hr ER] 180 mg PO DAILY 06/09/18 [History] Furosemide [Lasix] 20 mg PO DAILY 06/09/18 [History] Lisinopril [Zestril] 40 mg PO DAILY 06/09/18 [History] Loratadine [Claritin] 10 mg PO DAILY #20 tablet 06/29/18 [Rx] Carvedilol 12.5 mg PO BID 07/14/18 [History] Linagliptin [Tradjenta] 5 mg PO DAILY 07/14/18 [History] Meloxicam [Mobic] 7.5 mg PO DAILY PRN 07/14/18 [History] 3 Allergy/AdvReac Type Severity Reaction Status Date / Time Amoxicillin Allergy Hives Verified 06/29/18 13:20 codeine Allergy Hives Verified 06/29/18 13:20 Sulfa (Sulfonamide AdvReac Nausea Verified 06/29/18 13:20 Antibiotics) - Constitutional Constitutional: no chills, no fever(s) - EENT Eyes: no blurry vision, no change in vision Ears: no ear pain, no tinnitus Nose, mouth and throat: no nasal congestion, no sore throat - Cardiovascular Cardiovascular ROS IM: chest pain, dyspnea, dyspnea on exertion, no diaphoresis , no edema, no orthopnea, no syncope - Respiratory Respiratory: no cough, no hemoptysis, no chest congestion - Gastrointestinal Gastrointestinal: no diarrhea, no hematemesis, no hematochezia, no melena, no vomiting - Genitourinary Genitourinary: no dysuria, no flank pain, no hematuria - Musculoskeletal Musculoskeletal ROS IM: no muscle cramps, no myalgias - Integumentary Integumentary IM: no rash - Neurological Neurological ROS: no dizziness, no focal weakness, no frequent falls, no headache(s) - Psychiatric Psychiatric: no anxiety, no depression - Endocrine Endocrine IM: no polydipsia, no polyuria - Allergic/Immunologic Allergic/Immunologic: no GI upset with certain foods - Constitutional Vitals: Temp Pulse Resp BP Pulse Ox 98.2 F 83 18 186/87 97 07/14/18 23:44 07/14/18 23:44 07/14/18 23:44 07/14/18 23:44 07/14/18 23:44 General appearance: Present: cooperative, A&O X 3, pleasant, no acute distress Exam: see below - Head Head exam: Present: normal inspection - Eye Eye exam: Present: EOMI, PERRL. Absent: scleral icterus Pupils: Present: normal accommodation - ENT ENT exam: Present: mucous membranes dry, normal exam - Neck Neck exam general surgery: Present: full ROM, supple. Absent: tenderness, thyromegaly - Respiratory Respiratory exam: Present: CTAB. Absent: chest wall tenderness, rales, rhonchi , wheezes - Cardiovascular Cardiovascular exam: Present: RRR, +S1, +S2. Absent: diastolic murmur, systolic murmur - GI/Abdominal GI/Abdominal exam: Present: normal bowel sounds, soft. Absent: hepatomegaly, splenomegaly, tenderness - Extremities Exam Extremities exam: Present: normal capillary refill, warm, radial pulses palpable and symmetrical. Absent: calf tenderness, joint swelling, tenderness - Back Exam Back exam: Absent: CVA tenderness (L), CVA tenderness (R) - Neurological Exam Neurological exam: Present: alert, CN II-XII intact, oriented X3, no focal deficits - Psychiatric Psychiatric exam: Present: normal affect, normal mood - Skin Skin exam: Present: dry, intact, warm Internal Med - H&P Results - Labs CBC & Chem 7: 07/14/18 16:54 07/14/18 16:54 - EKG Data -: EKG Interpreted by Myself - EKG Data EKG comments: 07/15/18 03:59 NSR; RBB; no acute changes - Diagnostic Studies Chest x-ray Status: image reviewed by me (negative) - Assessment and plan (1) Chest pain Current Visit: Yes Status: Acute Assessment and plan: 1. Will trend troponins, EKG's, and order ECHO. 2. Will schedule stress test if troponins remain negative. 3. Will order fasting lipid profile. Qualifiers: Chest pain type: precordial pain Qualified Code(s): R07.2 - Precordial pain (2) DM2 (diabetes mellitus, type 2) Current Visit: Yes Status: Chronic Assessment and plan: 1. Will hold oral home meds. 2. Will monitor glucose and place on SSI. Qualifiers: Diabetes mellitus intermediate project manager insulin use: without correction use Diabetes mellitus complication status: without complication Qualified Code(s): E11.9 - Type 2 diabetes mellitus without complications (3) HTN (hypertension) Current Visit: Yes Status: Chronic Assessment and plan: 1. Continue home meds as appropriate. 2. Monitor BP and adjust as necessary. Qualifiers: Hypertension type: essential hypertension Qualified Code(s): I10 - Essential (primary) hypertension (4) DVT prophylaxis Current Visit: Yes Status: Acute Assessment and plan: 1. Heparin SQ.
[2018-07-15] MEDS: Levothyroxine 25 MCG TABLET PO SCH (05:04)
[2018-07-15] MEDS: *HR* Heparin 5,000 UNIT/ML VIAL SQ SCH ×3 (05:04→22:11)
[2018-07-15] MEDS: Insulin LISPRO 300 UNITS/3 ML VIAL SQ SCH ×4 (05:26→20:44)
[2018-07-15] MEDS: Acetaminophen 325 MG TABLET PO PRN ×2 (06:12→23:19)
[2018-07-15 06:20] LABS: Prothrombin Time 10.7 Seconds (9.4-12.1)
[2018-07-15 06:23] LABS: Activated Partial Thrombo Time 34.6 Seconds (26.0-36.0)
[2018-07-15 06:28] LABS: BUN/Creatinine Ratio 23 (6-26); Blood Urea Nitrogen 19 mg/dL (8-23); Calcium 9.6 mg/dL (8.6-10.3); Carbon Dioxide 28 mEq/L (23-29); Chloride 105 mEq/L (98-107); Cholesterol 143 mg/dL (< 200); Glucose 115 mg/dL (70-105); HDL Cholesterol 48 mg/dL (40-59); LDL Cholesterol,Calculated 59 mg/dL (0-99); Magnesium 2.1 mg/dL (1.6-2.6); Osmolality,Calculated 295 (280-300); Potassium 3.4 mEq/L (3.5-5.1); Sodium 141 mEq/L (136-145); Triglycerides 181 mg/dL (< 150); eGFR For Non-African Americans > 60 (> 60)
[2018-07-15 06:35] LABS: Troponin I < 0.03 ng/mL (< 0.04)
[2018-07-15] MEDS ORDERED: Regadenoson 0.4 MG/5 ML SYRINGE IVP ONE (10:23)
[2018-07-15] MEDS ORDERED: Perflutren Lipid Microsphere 1.3 ML in 0.9 % Sodium Chloride 8.7 ML IVP ONE (11:35)
--- NOTE | 2018-07-15 13:58 | Internal Med Progress Note ---
<FiorellaBookerDidier W - Last Filed: 07/15/18 14:32> Hospitalist Progress Note - Encounter Date of Encounter: 07/15/18 Time of Encounter: 13:55 - Subjective Interval History: Patient is a 62-year-old female presents with reported history of chest pain, pressure, shortness of breath. Because of persistent symptoms worsening pain she went to the ED for evaluation. Workup was negative. CT angiogram abdomen chest or aortic dissection. Troponins have been negative. Today patient is doing well still states she has some mild chest discomfort but it is not really pain. Patient described back from nuclear stress test. Patiently currently well denies heartburn, nausea, vomiting, diarrhea, abd pain, shortness of breath , diaphoresis. - Exam Vitals: Temp Pulse Resp BP Pulse Ox 98 F 70 17 157/72 96 07/15/18 07:35 07/15/18 07:35 07/15/18 07:35 07/15/18 07:35 07/15/18 07:35 Exam: GEN: NAD, pleasant, alert and oriented Head: Atraumatic normocephalic Eyes: EOMI, PERRLA Cardio: Regular rhythm no murmurs or gallops Pulmonary: clear to auscultation bilateral no wheezes rales or rhonchi Abd: BS X4, soft, non tender, limited exam due to morbid obesity Skin: warm, dry, no lesions Psych: Pleasant appropriate, talking quickly - Assessment and Plan (1) Chest pain Current Visit: Yes Status: Acute Assessment and Plan: 4 day history of atypical chest pain. Patient has positive family history for heart disease, history of a diabetes and morbid obesity Troponins at this point have been negative EKGs showing no concern for ischemia Nuclear stress test is performed results pending Plan Continue monitioring Waiting results of Nuclear stress test. will be a 2 day stress test (2) HTN (hypertension) Current Visit: Yes Status: Chronic Assessment and Plan: Known history of HTN Continue home meds as appropriate. Monitor BP and adjust as necessary. (3) DM2 (diabetes mellitus, type 2) Current Visit: Yes Status: Chronic Assessment and Plan: Known history of T2DM Will hold oral home meds. Will monitor glucose and place on SSI. (4) DVT prophylaxis Current Visit: Yes Status: Acute Assessment and Plan: Heparin SQ. (5) Adnexal mass Current Visit: Yes Status: Acute Assessment and Plan: Incidental finding on CT Complex 13 cm cystic right adnexal mass. No abdominal complaints Will consult BUSINESS DEVELOPMENT REPRESENTATIVE - Time Spent with Patient Total time spent is greater than 50% in coordination of care (as documented) at patient's floor/unit and/or counseling patient: Internal Medicine: Result - Labs CBC & Chem 7: 07/14/18 16:54 07/15/18 04:08 Labs: BMP 07/15/18 04:08 Sodium 141 Potassium 3.4 L Chloride 105 Carbon Dioxide 28 BUN 19 Creatinine 0.81 Glucose 115 H Calcium 9.6 Cardiac Enzymes 07/15/18 Range/Units 04:08 Troponin I < 0.03 (< 0.04) ng/mL - ABG Interpretation ABG results: PT/INR, D-dimer PT 10.7 Seconds (9.4-12.1) 07/15/18 04:08 Consult Discharge Plan - Plan Referrals: Caitlin Castillo, [Primary Care Provider] - <Jaspreet Flores - Last Filed: 07/15/18 14:43> Hospitalist Progress Note - Encounter Date of Encounter: 07/15/18 - Exam Vitals: Temp Pulse Resp BP Pulse Ox 98 F 70 17 157/72 96 07/15/18 07:35 07/15/18 07:35 07/15/18 07:35 07/15/18 07:35 07/15/18 07:35 - Assessment and Plan (1) DM2 (diabetes mellitus, type 2) Current Visit: Yes Status: Chronic (2) DVT prophylaxis Current Visit: Yes Status: Acute (3) HTN (hypertension) Current Visit: Yes Status: Chronic (4) Chest pain Current Visit: Yes Status: Acute (5) Adnexal mass Current Visit: Yes Status: Acute - Time Spent with Patient Total time spent is greater than 50% in coordination of care (as documented) at patient's floor/unit and/or counseling patient: Internal Medicine: Result - Labs CBC & Chem 7: 07/14/18 16:54 07/15/18 04:08 Labs: BMP 07/15/18 04:08 Sodium 141 Potassium 3.4 L Chloride 105 Carbon Dioxide 28 BUN 19 Creatinine 0.81 Glucose 115 H Calcium 9.6 Cardiac Enzymes 07/15/18 Range/Units 04:08 Troponin I < 0.03 (< 0.04) ng/mL - ABG Interpretation ABG results: PT/INR, D-dimer PT 10.7 Seconds (9.4-12.1) 07/15/18 04:08 - Attending Attestation I have personally seen and examined this patient on 07/15/18 and reviewed her chart and labs, including medications, I have discussed plan of care with the resident physician, whose documentation reflect our plan of care. With the additions/exceptions set forth below. Chest pain r/o ACS Await stress test Incidental asymptomatic adnexal mass, GUN eval non-emergently Continue current management Rest of details as in the resident physician's documentation <Didier Barros W - Last Filed: 07/15/18 14:32> (1) Chest pain Qualifiers: Chest pain type: precordial pain Qualified Code(s): R07.2 - Precordial pain (2) HTN (hypertension) Qualifiers: Hypertension type: essential hypertension Qualified Code(s): I10 - Essential (primary) hypertension (3) DM2 (diabetes mellitus, type 2) Qualifiers: Diabetes mellitus mcfp insulin use: without meterman use Diabetes mellitus complication status: without complication Qualified Code(s): E11.9 - Type 2 diabetes mellitus without complications <Jaspreet Flores T - Last Filed: 07/15/18 14:43> (1) DM2 (diabetes mellitus, type 2) Qualifiers: Diabetes mellitus mcfp insulin use: without meterman use Diabetes mellitus complication status: without complication Qualified Code(s): E11.9 - Type 2 diabetes mellitus without complications (3) HTN (hypertension) Qualifiers: Hypertension type: essential hypertension Qualified Code(s): I10 - Essential (primary) hypertension (4) Chest pain Qualifiers: Chest pain type: precordial pain Qualified Code(s): R07.2 - Precordial pain
[2018-07-15] MEDS: Lisinopril 20 MG TABLET PO SCH (16:09)
[2018-07-15] MEDS: Aspirin 81 MG TAB.CHEW PO SCH (16:09)
[2018-07-15] MEDS: Diltiazem CD (24hr) 180 MG CAPSULE PO SCH (16:10)
[2018-07-15] MEDS: Loratadine 10 MG TABLET PO SCH (16:10)
[2018-07-16] MEDS: Levothyroxine 25 MCG TABLET PO SCH (05:44)
[2018-07-16] MEDS: *HR* Heparin 5,000 UNIT/ML VIAL SQ SCH ×3 (05:44→21:04)
[2018-07-16 06:39] LABS: BUN/Creatinine Ratio 23 (6-26); Blood Urea Nitrogen 17 mg/dL (8-23); Calcium 9.7 mg/dL (8.6-10.3); Carbon Dioxide 26 mEq/L (23-29); Chloride 107 mEq/L (98-107); Glucose 135 mg/dL (70-105); Osmolality,Calculated 294 (280-300); Sodium 140 mEq/L (136-145); eGFR For Non-African Americans > 60 (> 60)
[2018-07-16] MEDS ORDERED: Isovue-370 500 ML INFUS..BTL IV ONE (08:20)
--- NOTE | 2018-07-16 09:02 | Internal Med Progress Note ---
<FiorellaRejit W - Last Filed: 07/16/18 11:22> Hospitalist Progress Note - Encounter Date of Encounter: 07/16/18 Time of Encounter: 08:59 - Subjective Interval History: Patient is a 62-year-old female presents with reported history of chest pain, pressure, shortness of breath. Patient reports she is doing well today. Her chest discomfort is improving although it is still present. Patient recieving final nuclear stress test tomorrow. Pt recieving CTA chest because of a dilated aortic root found on ECHO. Patient also to undergo pelvic ultrasound because of a complex 13 cm cyst in the right adnexa. Patient denies diaphoresis, heartburn , nausea, vomiting, diarrhea, abdominal pain, shortness of breath. - Exam Vitals: Temp Pulse Resp BP Pulse Ox 98.3 F 68 17 177/74 96 07/16/18 07:03 07/16/18 07:03 07/16/18 07:03 07/16/18 07:03 07/16/18 07:03 Exam: GEN: NAD, pleasant, alert and oriented Head: Atraumatic normocephalic Eyes: EOMI, PERRLA Cardio: Regular rhythm no murmurs or gallops Pulmonary: clear to auscultation bilateral no wheezes rales or rhonchi Abd: BS X4, soft, non tender, limited exam due to morbid obesity Skin: warm, dry, no lesions Psych: Pleasant appropriate, talking quickly, poor comprehension of her medical state and procedures being done. Likely contributed to low intellect - Assessment and Plan (1) Chest pain Current Visit: Yes Status: Acute Assessment and Plan: 5 day history of atypical chest pain. Patient has positive family history for heart disease, history of a diabetes and morbid obesity Troponins at this point have been negative EKGs showing no concern for ischemia Nuclear stress test is performed results pending ECHO found ejection fraction of 60% and dilated proximal ascending thoracic aorta Follow up CTA found normal thoracic aorta diameter Plan -Continue monitioring -Waiting results of Nuclear stress test. will be a 2 day stress test (2) HTN (hypertension) Current Visit: Yes Status: Chronic Assessment and Plan: Known history of HTN Continue home meds as appropriate. Monitor BP and adjust as necessary. (3) DM2 (diabetes mellitus, type 2) Current Visit: Yes Status: Chronic Assessment and Plan: Known history of T2DM Will hold oral home meds. Will monitor glucose and place on SSI. (4) DVT prophylaxis Current Visit: Yes Status: Acute Assessment and Plan: Heparin SQ. (5) Adnexal mass Current Visit: Yes Status: Acute Assessment and Plan: Incidental finding on CT Complex 13 cm cystic right adnexal mass. No abdominal complaints Plan - Pelvic US ordered - Will discuss results with SWITCHBOARD MECHANIC appreciate recs - Time Spent with Patient Total time spent is greater than 50% in coordination of care (as documented) at patient's floor/unit and/or counseling patient: Internal Medicine: Result - Labs CBC & Chem 7: 07/14/18 16:54 07/16/18 05:04 Labs: BMP 07/16/18 05:04 Sodium 140 Potassium 4.0 Chloride 107 Carbon Dioxide 26 BUN 17 Creatinine 0.75 Glucose 135 H Calcium 9.7 Cardiac Enzymes 07/15/18 Range/Units 17:57 Troponin I < 0.03 (< 0.04) ng/mL - ABG Interpretation ABG results: PT/INR, D-dimer PT 10.7 Seconds (9.4-12.1) 07/15/18 04:08 - Impressions Impressions Echocardiogram 07/15/18 02:21 Impressions: LVEF 60%. Mild concentric left ventricular hypertrophy. Definity echo contrast was used. Normal right ventricular structure and function. No significant valvular dysfunction. No pulmonary hypertension. Dilated proximal ascending thoracic aorta, 4.[address] imaging. Left Ventricular Wall Motion: Rest Echo Findings All wall segments showed normal motion. Findings: Study Quality * Technically sub-optimal due to body habitus. ECG Findings * Normal sinus rhythm. Left Ventricle * LVEF 60%. * Mild concentric left ventricular hypertrophy. * Definity echo contrast was used. * Normal LV chamber size and wall thickness. Right Ventricle * Normal right ventricular structure and function. Left Atrium * Mildly dilated left atrium. Right Atrium * Normal right atrial size. Aortic Valve * No aortic regurgitation. * Aortic valve not well visualized. * No aortic stenosis. Mitral Valve * No mitral regurgitation. * Normal mitral valve structure. * No mitral stenosis. * Mild mitral annular calcification Tricuspid Valve * No tricuspid regurgitation. * Normal tricuspid valve structure. Pulmonic Valve * Pulmonic valve is not well visualized. * No pulmonic stenosis. * No pulmonic regurgitation. Pulmonary Artery * Pulmonary artery not well visualized. Pericardium * There is no pericardial effusion present. Aorta * Dilated proximal ascending thoracic aorta, 4.0 cm. Interatrial Septum * Interatrial septum not well evaluated. IVC * The IVC is not well evaluated. Consult Discharge Plan - Plan Referrals: Caitlin Castillo DO [Primary Care Provider] - <Jaspreet Flores - Last Filed: 07/16/18 13:14> Hospitalist Progress Note - Encounter Date of Encounter: 07/16/18 - Exam Vitals: Temp Pulse Resp BP Pulse Ox 97.9 F 74 16 171/74 95 07/16/18 11:24 07/16/18 11:24 07/16/18 11:24 07/16/18 11:24 07/16/18 11:24 - Assessment and Plan (1) DM2 (diabetes mellitus, type 2) Current Visit: Yes Status: Chronic (2) DVT prophylaxis Current Visit: Yes Status: Acute (3) HTN (hypertension) Current Visit: Yes Status: Chronic (4) Chest pain Current Visit: Yes Status: Acute (5) Adnexal mass Current Visit: Yes Status: Acute - Time Spent with Patient Total time spent is greater than 50% in coordination of care (as documented) at patient's floor/unit and/or counseling patient: Internal Medicine: Result - Labs CBC & Chem 7: 07/14/18 16:54 07/16/18 05:04 Labs: BMP 07/16/18 05:04 Sodium 140 Potassium 4.0 Chloride 107 Carbon Dioxide 26 BUN 17 Creatinine 0.75 Glucose 135 H Calcium 9.7 Cardiac Enzymes 07/15/18 Range/Units 17:57 Troponin I < 0.03 (< 0.04) ng/mL - ABG Interpretation ABG results: PT/INR, D-dimer PT 10.7 Seconds (9.4-12.1) 07/15/18 04:08 - Impressions Impressions Echocardiogram 07/15/18 02:21 Impressions: LVEF 60%. Mild concentric left ventricular hypertrophy. Definity echo contrast was used. Normal right ventricular structure and function. No significant valvular dysfunction. No pulmonary hypertension. Dilated proximal ascending thoracic aorta, 4.[address] imaging. Left Ventricular Wall Motion: Rest Echo Findings All wall segments showed normal motion. Findings: Study Quality * Technically sub-optimal due to body habitus. ECG Findings * Normal sinus rhythm. Left Ventricle * LVEF 60%. * Mild concentric left ventricular hypertrophy. * Definity echo contrast was used. * Normal LV chamber size and wall thickness. Right Ventricle * Normal right ventricular structure and function. Left Atrium * Mildly dilated left atrium. Right Atrium * Normal right atrial size. Aortic Valve * No aortic regurgitation. * Aortic valve not well visualized. * No aortic stenosis. Mitral Valve * No mitral regurgitation. * Normal mitral valve structure. * No mitral stenosis. * Mild mitral annular calcification Tricuspid Valve * No tricuspid regurgitation. * Normal tricuspid valve structure. Pulmonic Valve * Pulmonic valve is not well visualized. * No pulmonic stenosis. * No pulmonic regurgitation. Pulmonary Artery * Pulmonary artery not well visualized. Pericardium * There is no pericardial effusion present. Aorta * Dilated proximal ascending thoracic aorta, 4.0 cm. Interatrial Septum * Interatrial septum not well evaluated. IVC * The IVC is not well evaluated. Chest CTA 07/16/18 08:20 IMPRESSION: 1. No acute findings in the chest. Specifically, no acute vascular findings such as pulmonary embolism or aortic dissection. 2. Normal thoracic aortic caliber. 3. Additional incidental findings as above for which no follow-up is recommended. D/ / Christo Sheehan MD / Christo Sheehan MD Interpreting Provider: Christo Sheehan MD - Attending Attestation I have personally seen and examined this patient on 07/16/18 and reviewed her chart and labs, including medications, I have discussed plan of care with the resident physician, whose documentation reflect our plan of care. With the additions/exceptions set forth below. No new complaints this morning. Echocardiogram shows dilated aortic root. CT angiogram ordered, rules out any aortic abnormalities. SWITCHBOARD MECHANIC consulted for adnexal mass, recommends pelvic ultrasound and transferred to [place] suspicion for cancer. The patient is otherwise stable. Rest of management as in the resident physician's documentation <iDdier Barros W - Last Filed: 07/16/18 11:22> (1) Chest pain Qualifiers: Chest pain type: precordial pain Qualified Code(s): R07.2 - Precordial pain (2) HTN (hypertension) Qualifiers: Hypertension type: essential hypertension Qualified Code(s): I10 - Essential (primary) hypertension (3) DM2 (diabetes mellitus, type 2) Qualifiers: Diabetes mellitus ad terminal makeup operator insulin use: without assisted use Diabetes mellitus complication status: without complication Qualified Code(s): E11.9 - Type 2 diabetes mellitus without complications <Jaspreet Flores T - Last Filed: 07/16/18 13:14> (1) DM2 (diabetes mellitus, type 2) Qualifiers: Diabetes mellitus ad terminal makeup operator insulin use: without assisted use Diabetes mellitus complication status: without complication Qualified Code(s): E11.9 - Type 2 diabetes mellitus without complications (3) HTN (hypertension) Qualifiers: Hypertension type: essential hypertension Qualified Code(s): I10 - Essential (primary) hypertension (4) Chest pain Qualifiers: Chest pain type: precordial pain Qualified Code(s): R07.2 - Precordial pain
[2018-07-16 09:29] LABS: Cancer Antigen 125 10 U/mL (Less than 35)
[2018-07-16] MEDS: Aspirin 81 MG TAB.CHEW PO SCH (09:36)
[2018-07-16] MEDS: Lisinopril 20 MG TABLET PO SCH (09:36)
[2018-07-16] MEDS: Diltiazem CD (24hr) 180 MG CAPSULE PO SCH (09:36)
[2018-07-16] MEDS: Loratadine 10 MG TABLET PO SCH (09:36)
[2018-07-16] MEDS: Insulin LISPRO 300 UNITS/3 ML VIAL SQ SCH ×4 (09:37→20:41)
[2018-07-16] MEDS: Acetaminophen 325 MG TABLET PO PRN ×2 (09:41→23:48)
[2018-07-17] MEDS: Levothyroxine 25 MCG TABLET PO SCH (05:54)
[2018-07-17] MEDS: *HR* Heparin 5,000 UNIT/ML VIAL SQ SCH ×2 (05:54→14:50)
[2018-07-17] MEDS: Acetaminophen 325 MG TABLET PO PRN (06:05)
[2018-07-17 06:21] LABS: BUN/Creatinine Ratio 30 (6-26); Blood Urea Nitrogen 22 mg/dL (8-23); Calcium 9.9 mg/dL (8.6-10.3); Carbon Dioxide 27 mEq/L (23-29); Chloride 105 mEq/L (98-107); Glucose 147 mg/dL (70-105); Osmolality,Calculated 294 (280-300); Potassium 4.1 mEq/L (3.5-5.1); Sodium 139 mEq/L (136-145); eGFR For Non-African Americans > 60 (> 60)
[2018-07-17] MEDS: Insulin LISPRO 300 UNITS/3 ML VIAL SQ SCH ×3 (08:32→17:24)
[2018-07-17] MEDS: Aspirin 81 MG TAB.CHEW PO SCH (08:33)
[2018-07-17] MEDS: Loratadine 10 MG TABLET PO SCH (08:33)
[2018-07-17] MEDS: Lisinopril 20 MG TABLET PO SCH (08:33)
[2018-07-17] MEDS: Diltiazem CD (24hr) 180 MG CAPSULE PO SCH (08:33)
--- NOTE | 2018-07-17 08:53 | Internal Med Progress Note ---
Hospitalist Progress Note - Encounter Date of Encounter: 07/17/18 Time of Encounter: 09:30 - Subjective Interval History: no acute events overnight. Patient is s/p her nuclear stress test which was negative for any ischemia, except for small size moderate intensive reversible apical septal perfusion defect. Her US of abdomen showed a 1.5 cm thickened endometrium with cystic foci and Indeterminate 11.0 cm complex right ovarian lesion with a thickened septation. She would be following up with a web production manager at [facility] once she gets discharged from here for further management. - Exam Vitals: Temp Pulse Resp BP Pulse Ox 97.6 F 71 19 145/66 96 07/17/18 07:39 07/17/18 07:39 07/17/18 07:39 07/17/18 07:39 07/17/18 07:39 Exam: GEN: NAD, pleasant, alert and oriented Head: Atraumatic normocephalic Eyes: EOMI, PERRLA Cardio: Regular rhythm no murmurs or gallops Pulmonary: clear to auscultation bilateral no wheezes rales or rhonchi Abd: BS X4, soft, non tender, limited exam due to morbid obesity Skin: warm, dry, no lesions Psych: Pleasant appropriate, talking quickly, poor comprehension of her medical state and procedures being done. Likely contributed to low intellect Extremities: no clubbing, cyanosis, or pedal edema - Assessment and Plan (1) Chest pain Current Visit: Yes Status: Acute Assessment and Plan: - likely atypical and non cardiac in nature , her nuclear stress test was negative for any ischemic pathology. Her trops were negative and EKG was negative for St-T changes, her Echo showed an LVEF : 60% -patient not endorsing any new SOB, chest pain, palpitation. - at this point because of her negative exams, she should be stable to be discharged from the hospital. - (2) HTN (hypertension) Current Visit: Yes Status: Chronic Assessment and Plan: - patient has a known Hx of HTN - today she was hypertensive (145/66) , increased her diltiazem to 240 mg PO - continue to monitor (3) DM2 (diabetes mellitus, type 2) Current Visit: Yes Status: Chronic Assessment and Plan: - she has a known Hx of DM2, - currently on SSI low -dose - her glucose is in the range of 140-180 . (4) Adnexal mass Current Visit: Yes Status: Acute Assessment and Plan: - patient had an adnexal mass as an incidental finding on her CT. it was confirmed by her US of the abdomen showing 1.0 cm complex right ovarian lesion with a thickened septation. - CA 125, CEA pending - spoke to Dr. Osborne at [facility] and she would evaluate the patient next week as an out-patient to rule out any neoplasms. patient endorses understanding of the situation and she said she would follow up - (5) DVT prophylaxis Current Visit: Yes Status: Acute DVT Prophylaxis: SQ heparin - Time Spent with Patient Total time spent is greater than 50% in coordination of care (as documented) at patient's floor/unit and/or counseling patient: Internal Medicine: Result - Labs CBC & Chem 7: 07/14/18 16:54 07/17/18 04:58 Labs: BMP 07/16/18 07/17/18 05:04 04:58 Sodium 140 139 Potassium 4.0 4.1 Chloride 107 105 Carbon Dioxide 26 27 BUN 17 22 Creatinine 0.75 0.73 Glucose 135 H 147 H Calcium 9.7 9.9 - ABG Interpretation ABG results: PT/INR, D-dimer PT 10.7 Seconds (9.4-12.1) 07/15/18 04:08 - Impressions Impressions Chest CTA 07/16/18 08:20 IMPRESSION: 1. No acute findings in the chest. Specifically, no acute vascular findings such as pulmonary embolism or aortic dissection. 2. Normal thoracic aortic caliber. 3. Additional incidental findings as above for which no follow-up is recommended. D/ / Christo Sheehan MD / Christo Sheehan MD Interpreting Provider: Christo Sheehan MD Consult Discharge Plan - Plan Instructions: Chest Pain (DC) Additional Instructions: follow up with Dr Lisha Osborne at [facility] next tuesday for further workup of her ovarian cyst . Her office number is [phone]. Referrals: Caitlin Castillo DO [Primary Care Provider] - 07/21/18 3:00 pm (1) Chest pain Qualifiers: Chest pain type: precordial pain Qualified Code(s): R07.2 - Precordial pain (2) HTN (hypertension) Qualifiers: Hypertension type: essential hypertension Qualified Code(s): I10 - Essential (primary) hypertension (3) DM2 (diabetes mellitus, type 2) Qualifiers: Diabetes mellitus jail insulin use: without terminal gauger supervisor use Diabetes mellitus complication status: without complication Qualified Code(s): E11.9 - Type 2 diabetes mellitus without complications
[2018-07-17] MEDS ORDERED: Diltiazem CD (24hr) 240 MG CAPSULE PO SCH (13:31)
--- NOTE | 2018-07-17 14:48 | Discharge Summary ---
<Deuce Mcarthur - Last Filed: 07/17/18 18:09> - NOTES TO OUTPATIENT PROVIDER Notes to Outpatient Provider: follow up with Dr Lisha Osborne at [facility] next tuesday for further workup of her ovarian cyst . Her office number is [id number]. Orders not resulted at time of discharge: Pending orders 07/15/18 02:25 NM ty perf SPECT multi [NM] Routine 07/15/18 06:00 ECG 12 lead ECG [ECG] AM 0600 07/17/18 15:00 US pelvis extended [US] Routine Date of Encounter: 07/17/18 Time of Encounter: 08:30 - Discharge Diagnosis (1) Chest pain Priority: Primary Status: Acute Qualifiers: Chest pain type: precordial pain Qualified Code(s): R07.2 - Precordial pain (2) HTN (hypertension) Priority: Secondary Status: Chronic Qualifiers: Hypertension type: essential hypertension Qualified Code(s): I10 - Essential (primary) hypertension (3) DM2 (diabetes mellitus, type 2) Priority: Secondary Status: Chronic Qualifiers: Diabetes mellitus [facility] insulin use: without [facility] use Diabetes mellitus complication status: without complication Qualified Code(s): E11.9 - Type 2 diabetes mellitus without complications Hospital course: Ms. Mills is a 62 year old female with a PMHx of DM, HTN, TIA , HLD who was admitted to the [facility] on 07/14 for 4 days of chest pain. Patient has no past know medical Hx of CAD. Her initial work up was negative for ST changes, Troponins were negative, CTA was negative for any dissections or aneurysmsm. Her hospital course was very benign. She did not endorse chest pain, did have a mild increase in her BP and we increased her Diltiazem. There was an incidental finding of a complex cystic lesion in the right adnexa measuring 13 x 7 cm.in her abdomen CTA. This was further confirmed in her US findings which showed a 1.5 cm thickened endometrium with cystic foci and an Indeterminate 11.0 cm complex right ovarian lesion with a thickened septation. I spoke to the [facility] at the [facility] for a transfer for further management. I was told that since the patient is not symptomatic , they would have her follow up next week as an out-patient. They also asked for us to get CEA and CA 125 on her before we discharge her. - Time Spent with Patient Total time spent providing and/or coordinating discharge services: - Discharge Medications Home Medications: Allopurinol [Zyloprim] 300 mg PO DAILY 09/07/16 [History] Levothyroxine [Synthroid] 25 mcg PO QAM 09/07/16 [History] Lovastatin [Mevacor] 20 mg PO HS 09/07/16 [History] metFORMIN [Glucophage] 500 mg PO BID 09/07/16 [History] Aspirin 81 mg PO DAILY #30 tab.chew 02/08/17 [Rx] Ammonium Lactate [Lac-Hydrin Five] 2 - 3 gm TP BID 02/10/17 [History] Diltiazem HCl [Diltiazem 12Hr ER] 180 mg PO DAILY 06/09/18 [History] Furosemide [Lasix] 20 mg PO DAILY 06/09/18 [History] Lisinopril [Zestril] 40 mg PO DAILY 06/09/18 [History] Loratadine [Claritin] 10 mg PO DAILY #20 tablet 06/29/18 [Rx] Carvedilol 12.5 mg PO BID 07/14/18 [History] Linagliptin [Tradjenta] 5 mg PO DAILY 07/14/18 [History] Meloxicam [Mobic] 7.5 mg PO DAILY PRN 07/14/18 [History] Allergies/Adverse Reactions: 3 Allergy/AdvReac Type Severity Reaction Status Date / Time Amoxicillin Allergy Hives Verified 06/29/18 13:20 codeine Allergy Hives Verified 06/29/18 13:20 Sulfa (Sulfonamide AdvReac Nausea Verified 06/29/18 13:20 Antibiotics) Date of admission: 07/14/18 20:09 Primary care physician: Caitlin Castillo, - Constitutional Vitals: Temp Pulse Resp BP Pulse Ox 97.5 F L 64 17 152/81 95 07/17/18 11:24 07/17/18 11:24 07/17/18 11:24 07/17/18 11:24 07/17/18 11:24 General appearance: Present: cooperative, A&O X 3, pleasant, no acute distress Exam: GEN: NAD, pleasant, alert and oriented Head: Atraumatic normocephalic Eyes: EOMI, PERRLA Cardio: Regular rhythm no murmurs or gallops Pulmonary: clear to auscultation bilateral no wheezes rales or rhonchi Abd: BS X4, soft, non tender, limited exam due to morbid obesity Skin: warm, dry, no lesions Psych: Pleasant appropriate, talking quickly, poor comprehension of her medical state and procedures being done. Likely contributed to low intellect Extremities: no clubbing, cyanosis, or pedal edema - Patient Status Disposition: Home, Self-Care Functional capacity at discharge: independent ambulation Overall status at discharge: patient is progressing back to baseline - Discharge Instructions Instructions: Chest Pain (DC) Follow Up With: Caitlin Castillo DO [Primary Care Provider] - 07/21/18 3:00 pm Additional Instructions: follow up with Dr Lisha Osborne at [facility] next tuesday for further workup of her ovarian cyst . Her office number is [id number]. - Diet and Activity Activity: increase activity as tolerated Diet: low fat, low cholesterol <Jaspreet Flores - Last Filed: 07/17/18 18:37> Orders not resulted at time of discharge: Pending orders 07/15/18 02:25 NM ty perf SPECT multi [NM] Routine 07/15/18 06:00 ECG 12 lead ECG [ECG] AM 0600 Date of Encounter: 07/17/18 - Discharge Diagnosis (1) DM2 (diabetes mellitus, type 2) Status: Chronic Qualifiers: Diabetes mellitus [facility] use: without [facility] use Diabetes mellitus complication status: without complication Qualified Code(s): E11.9 - Type 2 diabetes mellitus without complications (2) DVT prophylaxis Status: Acute (3) HTN (hypertension) Status: Chronic Qualifiers: Hypertension type: essential hypertension Qualified Code(s): I10 - Essential (primary) hypertension (4) Chest pain Status: Acute Qualifiers: Chest pain type: precordial pain Qualified Code(s): R07.2 - Precordial pain (5) Adnexal mass Status: Acute Hospital course: Ms. Mills is a 62 year old female - Time Spent with Patient Total time spent providing and/or coordinating discharge services: Greater than 30 minutes Date of admission: 07/14/18 20:09 Primary care physician: Caitlin Castillo DO - Constitutional Vitals: Temp Pulse Resp BP Pulse Ox 97.9 F 73 17 179/75 96 07/17/18 14:54 07/17/18 14:54 07/17/18 14:54 07/17/18 14:54 07/17/18 14:54 - Attending Attestation I have personally seen and examined this patient on 07/17/18 and reviewed her chart and labs, including medications, I have discussed plan of care with the resident physician, whose documentation reflect our plan of care. With the additions/exceptions set forth below. Chest pain ACS ruled out, L adenexal mass suspicious for malignancy, [facility] called for transfer, recommended out-patient eval Details as in the resident physician's documentation
[2018-07-17 14:55] VITALS: BP 179/75
--- NOTE | 2018-07-17 17:29 | Electrocardiograph Report ---
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
[2018-07-17 18:26] LABS: Cancer Antigen 125 11 U/mL (Less than 35)
[2018-07-17 18:31] LABS: Carcinoembryonic Antigen 1.6 ng/mL (Less than 5.0)
== END 2018-07-17 19:16 | disposition home or self-care (01) ==
LOC: 3BNU 15:24 → EMEROOARM 15:24 → SUATTDRO 20:09 → 3BNU 20:43
PROVIDERS: ADMIT Internal Medicine; ATTEND Internal Medicine

== ENCOUNTER 2018-09-21 19:00 | Observation (INO) ==
[2018-09-21] MEDS ORDERED: 0.9 % Sodium Chloride 1,000 ML IVC ONE (19:41)
[2018-09-21 20:11] LABS: Bilirubin,Urine Negative (Negative); Blood,Urine Negative (Negative); Clarity,Urine Clear (Clear); Color,Urine Yellow (Yellow); Glucose,Urine (UA) Normal (Normal); Ketones,Urine Negative (Negative); Leukocyte Esterase,Urine Small (Negative); Nitrite,Urine Negative (Negative); PH,Urine 5.5 pH Units (5.0-8.0); Protein,Urine Negative (Neg-Trace); Specific Gravity,Urine 1.015 (1.010-1.025); Urobilinogen,Urine Normal (Normal)
[2018-09-21 20:13] LABS: Bacteria,Urine None Seen per hpf (None-Few); Hyaline Casts,Urine None Seen per lpf (None-Few); RBC,Urine 0-3 per hpf (0-3); Squamous Epithelial Cell,Urine Many per lpf (None-Few)
[2018-09-21 20:22] LABS: Hematocrit 37.7 % (35.3-44.9); Hemoglobin 12.3 g/dL (11.5-15.4); Mean Corpuscular HGB Conc 32.6 g/dL (31.6-35.5); Mean Corpuscular Hemoglobin 28.2 pg (28.0-33.3); Mean Corpuscular Volume 86.5 fL (83.0-100.0); Mean Platelet Volume 9.5 fL (9.4-12.4); Platelet Count 288 K/mcL (140-400); Red Blood Count 4.36 M/mcL (3.82-4.97); Red Cell Distribution Width 16.1 % (11.5-14.5)
[2018-09-21 20:30] LABS: INR 0.9; Prothrombin Time 10.4 Seconds (9.4-12.1)
[2018-09-21 20:32] LABS: Activated Partial Thrombo Time 35.9 Seconds (26.0-36.0)
[2018-09-21 20:40] LABS: BUN/Creatinine Ratio 29 (6-26); Blood Urea Nitrogen 23 mg/dL (8-23); Calcium 10.7 mg/dL (8.6-10.3); Carbon Dioxide 29 mEq/L (23-29); Chloride 102 mEq/L (98-107); Glucose 160 mg/dL (70-105); Osmolality,Calculated 297 (280-300); Potassium 3.8 mEq/L (3.5-5.1); Sodium 140 mEq/L (136-145); Troponin I < 0.03 ng/mL (< 0.04); eGFR For Non-African Americans > 60 (> 60)
--- NOTE | 2018-09-21 21:34 | Emergency Department Note ---
Disposition Clinical Impression: TIA (transient ischemic attack) Disposition: Admitted As Inpatient Condition: Fair Time of Disposition: 21:50 General Adult HPI - General Chief complaint: ED General Medical Stated complaint: HTN Time Seen by Provider: 09/21/18 19:03 Source: EMS Mode of arrival: EMS Limitations: no limitations Nursing Notes Reviewed: Yes Vital Signs Reviewed: Yes - History of Present Illness HPI Narrative: Patient is a 62-year-old female with past medical history of diabetes, hyperlipidemia, hypertension, and TIA presents to the emergency Department by squad for evaluation of left upper and lower extremity numbness and tingling. Patient states that partially one hour prior to arrival she was riding a bus to [facility] when she felt loss of sensation in her left upper and lower extremity and states that it felt similar to when she had a mini stroke in the past. She states that she called EMS and when they arrived they checked her blood pressure and it was not 170s and told her was hypertensive. Upon arrival to the emergency room of the patient's symptoms completely resolved and she is asystematic at this time. She denies any other focal neurological deficits. States she has history of similar symptoms and occurred approximately little over one year ago. Pain Scale: 1 - Related Data Home Medications Medication Instructions Recorded Confirmed Allopurinol [Zyloprim] 300 mg PO DAILY 09/07/16 07/14/18 Levothyroxine [Synthroid] 25 mcg PO QAM 09/07/16 07/14/18 Lovastatin [Mevacor] 20 mg PO HS 09/07/16 07/14/18 metFORMIN [Glucophage] 500 mg PO BID 09/07/16 07/14/18 Ammonium Lactate [Lac-Hydrin Five] 2 - 3 gm TP BID 02/10/17 07/14/18 Diltiazem HCl [Diltiazem 12Hr ER] 180 mg PO DAILY 06/09/18 07/14/18 Furosemide [Lasix] 20 mg PO DAILY 06/09/18 07/14/18 Lisinopril [Zestril] 40 mg PO DAILY 06/09/18 07/14/18 Carvedilol 12.5 mg PO BID 07/14/18 07/14/18 Linagliptin [Tradjenta] 5 mg PO DAILY 07/14/18 07/14/18 Meloxicam [Mobic] 7.5 mg PO DAILY PRN 07/14/18 07/14/18 Previous Rx's Medication Instructions Recorded Aspirin 81 mg PO DAILY #30 tab.chew 02/08/17 Loratadine [Claritin] 10 mg PO DAILY #20 tablet 06/29/18 Albuterol Sulfate [Proair Hfa] 1 puff IH Q4HR PRN #1 inh 08/29/18 GuaiFENesin/Dextromethorphan 5 ml PO Q6HR PRN #120 syrup 08/29/18 [Robitussin/DM] Loratadine [Allergy Relief] 10 mg PO DAILY #30 tablet 08/29/18 Allergies Allergy/AdvReac Type Severity Reaction Status Date / Time Amoxicillin Allergy Hives Verified 06/29/18 13:20 codeine Allergy Hives Verified 06/29/18 13:20 Sulfa (Sulfonamide AdvReac Nausea Verified 06/29/18 13:20 Antibiotics) All systems ED: reviewed and negative except as stated. Review of Systems: As Per HPI Constitutional: Denies: fever Cardiovascular: Denies: chest pain, palpitations, dyspnea on exertion Respiratory: Denies: cough, dyspnea, wheezes Gastrointestinal: Denies: abdominal pain, nausea, vomiting Genitourinary: Denies: dysuria Musculoskeletal: Denies: back pain, neck pain Neurological: Reports: weakness, numbness. Denies: headache, paresthesias, confusion, abnormal gait Psychiatric: Denies: anxiety, depression Past Medical History - Past Medical History Attestation: Yes The following information was validated with the patient. Medical history: Reports: diabetes, hyperlipidemia, hypertension Surgical history: Reports: , cholecystectomy, orthopedic, other Psychiatric history: Reports: anxiety PUBLIC STENOGRAPHER history: Reports: no PUBLIC STENOGRAPHER history - Social History Smoking Status: Never smoker Smokeless Tobacco Status: No Alcohol use: Reports: none Drug use: Reports: none Physical Exam CONSTITUTIONAL: Alert and oriented X3, in no apparent distress. HEAD: Normocephalic; atraumatic. EYES: PERRL, no scleral icterus. NOSE: The nose is normal in appearance without rhinorrhea RESP: Normal chest excursion with respiration; breath sounds clear and equal bilaterally; no wheezes, rhonchi, or rales CARD: Regular rhythm, without murmurs, rub or gallop ABD: Non-distended; non-tender, soft,without rigidity, rebound or guarding SKIN: Normal for age and race; warm and dry; no apparent lesions NEUROLOGICAL: Patient is alert and oriented times three. Cranial nerves III- XII are intact. Sensory and motor functions are intact. Strength is 5/5 for fl exion and extension in all 4 extremities. Patellar DTRS are equal and intact. Finger to nose testing is equal and normal bilaterally. - General Limitations: no limitations General appearance: alert, in no apparent distress Course Course Narrative: Patient underwent evaluation for TIA which include a head CT, and basic labs all of which are within normal limits. Patient's symptoms resolved upon arrival to the ER and she is been a symptomatically since that time. Upon review of her chart she was seen in 2017 for similar symptoms and which she had a full workup for TIA at that time. I discussed the patient's case with the hospitalist on- call, Dr. Hagen, and he agrees to accept. Vital Signs Temperature 98.1 F 09/21/18 19:01 Pulse Rate 100 09/21/18 19:01 Respiratory Rate 16 09/21/18 19:01 Blood Pressure 157/93 09/21/18 19:01 O2 Sat by Pulse Oximetry 93 09/21/18 19:01 Temperature 98.1 F 09/21/18 19:01 Pulse Rate 99 09/21/18 20:02 Respiratory Rate 16 09/21/18 20:02 Blood Pressure 164/84 09/21/18 20:02 O2 Sat by Pulse Oximetry 99 09/21/18 20:02 Oxygen Delivery Oxygen Delivery Room Air Medical Decision Making - Medical Records Medical records reviewed: Yes I reviewed the patient's medical records. - Lab Data Lab results reviewed: Yes I reviewed the patient's lab results. Result diagrams: 09/21/18 20:09 09/21/18 20:09 Lab Results 09/21/18 09/21/18 09/21/18 Range/Units 20:00 20:09 20:09 WBC 11.1 (4.3-11.1) K/mcL RBC 4.36 (3.82-4.97) M/mcL Hgb 12.3 (11.5-15.4) g/dL Hct 37.7 (35.3-44.9) % MCV 86.5 (83.0-100.0) fL MCH 28.2 (28.0-33.3) pg MCHC 32.6 (31.6-35.5) g/dL RDW 16.1 H (11.5-14.5) % Plt Count 288 (140-400) K/mcL MPV 9.5 (9.4-12.4) fL PT 10.4 (9.4-12.1) Seconds INR 0.9 APTT 35.9 (26.0-36.0) Seconds Sodium (136-145) mEq/L Potassium (3.5-5.1) mEq/L Chloride (98-107) mEq/L Carbon Dioxide (23-29) mEq/L BUN (8-23) mg/dL Creatinine (0.60-1.20) mg/dL Est GFR ( Amer) (> 60) Est GFR (Non-Af Amer) (> 60) BUN/Creatinine Ratio (6-26) Glucose (70-105) mg/dL Calculated Osmolality (280-300) Calcium (8.6-10.3) mg/dL Troponin I (< 0.04) ng/mL Urine Color Yellow (Yellow) Urine Clarity Clear (Clear) Urine pH 5.5 (5.0-8.0) pH Units Ur Specific [place] 1.015 (1.010-1.025) Urine Protein Negative (Neg-Trace) mg/dL Urine Glucose (UA) Normal (Normal) mg/dL Urine Ketones Negative (Negative) mg/dL Urine Blood Negative (Negative) Urine Nitrite Negative (Negative) Urine Bilirubin Negative (Negative) Urine Urobilinogen Normal (Normal) mg/dL Ur Leukocyte Esterase Small H (Negative) Urine Microscopic RBC 0-3 (0-3) per hpf Urine Microscopic WBC 5-15 H (0-3) per hpf Ur Squamous Epith Cells Many H (None-Few) per lpf Urine Bacteria None Seen (None-Few) per hpf Hyaline Casts None Seen (None-Few) per lpf Ur Culture Indicated? NO. A (NO) 09/21/18 Range/Units 20:09 WBC (4.3-11.1) K/mcL RBC (3.82-4.97) M/mcL Hgb (11.5-15.4) g/dL Hct (35.3-44.9) % MCV (83.0-100.0) fL MCH (28.0-33.3) pg MCHC (31.6-35.5) g/dL RDW (11.5-14.5) % Plt Count (140-400) K/mcL MPV (9.4-12.4) fL PT (9.4-12.1) Seconds INR APTT (26.0-36.0) Seconds Sodium 140 (136-145) mEq/L Potassium 3.8 (3.5-5.1) mEq/L Chloride 102 (98-107) mEq/L Carbon Dioxide 29 (23-29) mEq/L BUN 23 (8-23) mg/dL Creatinine 0.79 (0.60-1.20) mg/dL Est GFR ( Amer) > 60 (> 60) Est GFR (Non-Af Amer) > 60 (> 60) BUN/Creatinine Ratio 29 H (6-26) Glucose 160 H (70-105) mg/dL Calculated Osmolality 297 (280-300) Calcium 10.7 H (8.6-10.3) mg/dL Troponin I < 0.03 (< 0.04) ng/mL Urine Color (Yellow) Urine Clarity (Clear) Urine pH (5.0-8.0) pH Units Ur Specific [place] (1.010-1.025) Urine Protein (Neg-Trace) mg/dL Urine Glucose (UA) (Normal) mg/dL Urine Ketones (Negative) mg/dL Urine Blood (Negative) Urine Nitrite (Negative) Urine Bilirubin (Negative) Urine Urobilinogen (Normal) mg/dL Ur Leukocyte Esterase (Negative) Urine Microscopic RBC (0-3) per hpf Urine Microscopic WBC (0-3) per hpf Ur Squamous Epith Cells (None-Few) per lpf Urine Bacteria (None-Few) per hpf Hyaline Casts (None-Few) per lpf Ur Culture Indicated? (NO) - Radiology Data Radiology results reviewed: Yes I reviewed the patient's radiology results. Chest X-Ray 09/21/18 19:42 IMPRESSION: No acute process. D/ / Christo Gonzalez MD / Christo Gonzalez MD Interpreting Provider: Christo Gonzalez MD Head CT 09/21/18 19:43 IMPRESSION: No acute intracranial abnormality. Diffuse atrophic changes with findings suggesting chronic microvascular ischemia D/ / Christo Gonzalez MD / Christo Gonzalez MD Interpreting Provider: Christo Gonzalez MD Attestation Statement - Attestation Attestation: I examined this patient and my medical decision-making was reviewed with the Resident Physician, Dr. Mckeon. I agree with the documented findings, disposition and treatment plan as described except to the extent set forth below. Patient is a 62-year-old white female who presents seem or permit today with a one-hour history of left upper and left lower extremity heaviness and numbness and tingling. Patient has a history of hypertension hyperlipidemia diabetes and prior TIA and states that she was told that her blood pressure was also elevated and was sent to the emergency department. Patient denies any chest pain pressure or heaviness, no shortness of breath, no dizziness or vertigo, no visual changes or slurred speech, no abdominal pain, no diaphoresis nausea vomiting or any other associated symptoms. On arrival to the ED patient states that her left-sided heaviness and numbness had resolved and she is asymptomatic on arrival. Patient with a GCS of 15 and no focal neuro deficits with an NIH score equals 0 on arrival to the ED. I agree with patient's physical exam findings as documented. Vital signs are stable. EKG shows a normal sinus rhythm without acute ischemia. Patient underwent full lab evaluation including troponin, portal chest x-ray and head CT. Symptoms sound concerning for possible TIA. Patient had serial neuro exams throughout her ED course which remain unchanged. Chest x-ray is within normal limits, head CT is within normal limits, lab evaluation is all within normal limits with a mild elevation in her blood glucose without acidosis. Patient was administered aspirin and will be admitted for TIA evaluation, case was discussed with hospitalist who accepted patient for admission.
[2018-09-22] MEDS ORDERED: Naloxone 0.4 MG/ML INJ IVP PRN (04:13)
--- NOTE | 2018-09-22 04:21 | Internal Med History&Physical ---
Date of Encounter: 09/22/18 Time of Encounter: 03:50 Internal Medicine - H&P: HPI Chief complaint: TIA Admitted From: Emergency Dept Plans for Post Hospital Care: Home History of present illness: Ms. Mills is a 62 year old female Patient presented to the emergency room by ambulance after experiencing left leg and left arm numbness. She says that she was riding the bus [place] [facility] [employer] when she started to feel the numbness. She said a few prayers, was able to get off the bus, walk into [facility] where she had someone call her an ambulance. She has had a history of strokes in the past but does not remember when. She has no residual effects from these events however. In the emergency room CBC and BMP were within normal limits. Patient's troponin was less than 0.03. Urinalysis was negative for infection, chest x-ray showed no acute process. Head CT was negative for acute intracranial abnormality. By the time she made it to the emergency room, patient's symptoms had resolved. She was admitted to the hospital for further monitoring and workup. Upon my assessment, patient denies complaints. She denies nausea, vomiting, diarrhea, constipation, chest pain and abdominal pain. She does have one small scrape on her right toe and she requests Neosporin for this. She has had strokes in the past, but did not get prompt workup afterwards. A review of her past medical history shows she was admitted in January 2017 for TIA. At that time she had already undergone evaluation for TIAs, including having received echocardiogram, brain MRI, brain CT and carotid Dopplers, all of which were negative for acute events. She was also recently in the hospital 2 months ago with chest pain. Patient is not the best historian, having only completed eighth grade. Past Med Surg Social Fam HX - Past Medical History Medical history: diabetes, hyperlipidemia, hypertension Additional medical history: Hx of chronic bronchitis. Psychiatric history: anxiety, depression - Past Surgical History Surgical History: , cholecystectomy, orthopedic, other Additional surgical history: tubal - Social History Smoking Status: Never smoker Smokeless Tobacco Status: No Alcohol use: none Drug use: none - Family History Mother Living Status: Hx Family Neurologic Disorders: Yes Father Adopted: No Family Member Ethnicity: Non- Living Status: Hx Family Cardiac Disorders: Yes Hx Family Respiratory Disorders: No Hx Family Cancer: No Hx Family GI Disorders: No Hx Family Endocrine Disorder: No Hx Family Neuromuscular Disorders: No Hx Family Neurologic Disorders: No Hx Family HEENT Disorders: No Hx Family Autoimmune Disorders: No Internal Medicine - H&P: Meds Allopurinol [Zyloprim] 300 mg PO DAILY 09/07/16 [History] Levothyroxine [Synthroid] 25 mcg PO QAM 09/07/16 [History] Lovastatin [Mevacor] 20 mg PO HS 09/07/16 [History] metFORMIN [Glucophage] 500 mg PO BID 09/07/16 [History] Aspirin 81 mg PO DAILY #30 tab.chew 02/08/17 [Rx] Ammonium Lactate [Lac-Hydrin Five] 2 - 3 gm TP BID 02/10/17 [History] Furosemide [Lasix] 20 mg PO DAILY PRN 06/09/18 [History] Lisinopril [Zestril] 40 mg PO BID 06/09/18 [History] Loratadine [Claritin] 10 mg PO DAILY #20 tablet 06/29/18 [Rx] Carvedilol 12.5 mg PO BID 07/14/18 [History] Linagliptin [Tradjenta] 5 mg PO DAILY 07/14/18 [History] Meloxicam [Mobic] 7.5 mg PO DAILY PRN 07/14/18 [History] Albuterol Sulfate [Proair Hfa] 1 puff IH Q4HR PRN #1 inh 08/29/18 [Rx] GuaiFENesin/Dextromethorphan [Robitussin/DM] 5 ml PO Q6HR PRN #120 syrup 08/29/18 [Rx] Allergy/AdvReac Type Severity Reaction Status Date / Time Amoxicillin Allergy Hives Verified 06/29/18 13:20 codeine Allergy Hives Verified 06/29/18 13:20 Sulfa (Sulfonamide AdvReac Nausea Verified 06/29/18 13:20 Antibiotics) All Systems PM: A 10-system review of systems was performed and is negative for pertinent findings except as documented above in the HPI. - Constitutional Vitals: Temp Pulse Resp BP Pulse Ox 98.4 F 100 16 170/90 100 09/22/18 03:26 09/22/18 03:26 09/22/18 03:26 09/22/18 03:26 09/22/18 03:26 General appearance: Present: cooperative, A&O X 3, morbidly obese, pleasant, no acute distress, answers questions appropriately Exam: As above - Head Head exam: Present: normal inspection - Eye Eye exam: Present: EOMI, normal appearance - Neck Neck exam general surgery: Present: full ROM, normal inspection. Absent: tenderness - Respiratory Respiratory exam: Present: decreased breath sounds, CTAB. Absent: respiratory distress, rhonchi, wheezes Additional comments: Decreased breath sounds due to body habitus - Cardiovascular Cardiovascular exam: Present: RRR. Absent: diastolic murmur, systolic murmur - GI/Abdominal GI/Abdominal exam: Present: normal bowel sounds, soft. Absent: tenderness - Extremities Exam Extremities exam: Present: normal inspection, warm, radial pulses palpable and symmetrical. Absent: calf tenderness, pedal edema, tenderness - Neurological Exam Neurological exam: Present: alert, CN II-XII intact, oriented X3, no focal deficits, strengths equal and symetr throughout. Absent: altered, motor sensory deficit, pronater drift, facial droop, speech deficit - Expanded Neurological Exam Neuro motor strength exam: LUE: 5, RUE: 5, LLE: 5, RLE: 5 - Skin Skin exam: Present: dry, normal color, warm Additional comments: Small scrape to great toe on the right, no active bleeding, nontender Internal Med - H&P Results - Labs CBC & Chem 7: 09/22/18 04:37 09/22/18 04:37 Labs: Short CBC 09/21/18 Range/Units 20:09 WBC 11.1 (4.3-11.1) K/mcL Hgb 12.3 (11.5-15.4) g/dL Hct 37.7 (35.3-44.9) % Plt Count 288 (140-400) K/mcL BMP 09/21/18 20:09 Sodium 140 Potassium 3.8 Chloride 102 Carbon Dioxide 29 BUN 23 Creatinine 0.79 Glucose 160 H Calcium 10.7 H Cardiac Enzymes 09/21/18 Range/Units 20:09 Troponin I < 0.03 (< 0.04) ng/mL Urine 09/21/18 Range/Units 20:00 Urine Color Yellow (Yellow) Urine Clarity Clear (Clear) Urine pH 5.5 (5.0-8.0) pH Units Ur Specific [place] 1.015 (1.010-1.025) Urine Protein Negative (Neg-Trace) mg/dL Urine Glucose (UA) Normal (Normal) mg/dL - Impressions ITS Impressions Chest X-Ray 09/21/18 19:42 IMPRESSION: No acute process. D/ / Christo Gonzalez MD / Christo Gonzalez MD Interpreting Provider: Christo Gonzalez MD Head CT 09/21/18 19:43 IMPRESSION: No acute intracranial abnormality. Diffuse atrophic changes with findings suggesting chronic microvascular ischemia D/ / Christo Gonzalez MD / Christo Gonzalez MD Interpreting Provider: Christo Gonzalez MD - Assessment and plan (1) TIA (transient ischemic attack) Current Visit: Yes Status: Acute Assessment and plan: Similar presentation to when she presented back in January 2017. Workup at that time was negative. Patient's symptoms resolved prior to arrival to the ER. Cardiac monitoring overnight MRI in the morning Monitor blood pressures, allowing for permissive hypertension. Holding home meds but can be restarted at discharge. (2) DM2 (diabetes mellitus, type 2) Current Visit: No Status: Chronic Assessment and plan: Hold patient's home meds Monitor blood sugars with meals and at night Low-dose sliding scale insulin as needed Diabetic diet Qualifiers: Diabetes mellitus director long term care insulin use: without director long term care use Diabetes mellitus complication status: without complication Qualified Code(s): E11.9 - Type 2 diabetes mellitus without complications (3) Morbid obesity Current Visit: No Status: Chronic Assessment and plan: BMI greater than 50. (4) History of hypothyroidism Current Visit: No Status: Chronic Assessment and plan: Continue home meds (5) Chronic anemia Current Visit: Yes Status: Acute Assessment and plan: Patient's hemoglobin this morning was 10.7, down from 12.3 on admission. Could be related to dilution from IV fluids. No obvious signs of bleeding noted. MCV within normal limits. Continue to monitor (6) DVT prophylaxis Current Visit: No Status: Acute Assessment and plan: Heparin subcutaneous - Time Spent With Patient Total time spent is greater than 50% in coordination of care (as documented) at patient's floor/unit and/or counseling patient: Greater than 35 minutes
[2018-09-22] MEDS ORDERED: D5% in Water 1,000 ML IVC PRN (04:27)
[2018-09-22] MEDS ORDERED: Dextrose Gel 15 GM/37.5 ML TUBE PO PRN ×2 (04:27)
[2018-09-22] MEDS ORDERED: *HR* Dextrose 50 % in Water (Syg) 50 ML SYRINGE IVP PRN (04:27)
[2018-09-22 05:16] LABS: Hematocrit 33.3 % (35.3-44.9); Mean Corpuscular HGB Conc 32.1 g/dL (31.6-35.5); Mean Corpuscular Volume 87.2 fL (83.0-100.0); Mean Platelet Volume 9.6 fL (9.4-12.4); Platelet Count 263 K/mcL (140-400); Red Blood Count 3.82 M/mcL (3.82-4.97); Red Cell Distribution Width 16.3 % (11.5-14.5)
[2018-09-22 05:26] LABS: Hemoglobin 10.7 g/dL (11.5-15.4)
[2018-09-22 05:35] LABS: BUN/Creatinine Ratio 23 (6-26); Blood Urea Nitrogen 19 mg/dL (8-23); Calcium 9.7 mg/dL (8.6-10.3); Carbon Dioxide 28 mEq/L (23-29); Chloride 103 mEq/L (98-107); Glucose 253 mg/dL (70-105); Osmolality,Calculated 297 (280-300); Potassium 3.6 mEq/L (3.5-5.1); Sodium 138 mEq/L (136-145); eGFR For Non-African Americans > 60 (> 60)
[2018-09-22] MEDS ORDERED: *HR* Heparin 5,000 UNIT/ML VIAL SQ SCH (06:00)
[2018-09-22] MEDS ORDERED: Levothyroxine 25 MCG TABLET PO SCH (06:45)
[2018-09-22] MEDS: Insulin LISPRO 300 UNITS/3 ML VIAL SQ SCH ×2 (07:30→11:39)
[2018-09-22] MEDS ORDERED: Aspirin 81 MG TAB.CHEW PO SCH (09:00)
[2018-09-22] MEDS ORDERED: *HR* LORazepam 0.5 MG TABLET PO PRN (10:14)
[2018-09-22 11:36] LABS: Chol/HDL Ratio 3.8 (0-4.9)
[2018-09-22] MEDS ORDERED: Lisinopril-HCTZ 20-12.5mg TABLET PO SCH (13:45)
[2018-09-22 16:00] VITALS: BP 151/77
--- NOTE | 2018-09-22 16:18 | Discharge Summary ---
- NOTES TO OUTPATIENT PROVIDER Notes to Outpatient Provider: f/u with PCP on Tuesday Orders not resulted at time of discharge: Pending orders 09/22/18 04:15 MR head/brain wo con [MR] Routine Date of Encounter: 09/22/18 Time of Encounter: 16:16 - Discharge Diagnosis (1) TIA (transient ischemic attack) Priority: Primary Status: Acute (2) DM2 (diabetes mellitus, type 2) Priority: Secondary Status: Chronic Qualifiers: Diabetes mellitus remote computer terminal operator insulin use: without remote computer terminal operator use Diabetes mellitus complication status: without complication Qualified Code(s): E11.9 - Type 2 diabetes mellitus without complications (3) HTN (hypertension) Priority: Secondary Status: Chronic Qualifiers: Hypertension type: essential hypertension Qualified Code(s): I10 - Essential (primary) hypertension (4) Morbid obesity with BMI of 45.0-49.9, adult Priority: Secondary Status: Chronic Hospital course: Ms. Mills is a 62 year old female known past medical history of hypertension, diabetes, hyperlipidemia and morbid obesity who presented to ER after experiencing left leg and left arm numbness. She said the whole episode lasted for 10 minutes until she finished her prayer. She denied any more numbness / weakness. Pt was admitted in the hospital and placed her on traffic monitor specialist. She had CT of head done which did not show any acute changes. Pt does have severe claustrophobia and unable to do closed MRI. So I did talk to PCP Dr. Castillo who is going to see her on Tuesday. Will d/c her home in stable condition. Recommend to continue taking ASA and Statin. - Time Spent with Patient Total time spent providing and/or coordinating discharge services: - Discharge Medications Home Medications: Allopurinol [Zyloprim] 300 mg PO DAILY 09/07/16 [History] Levothyroxine [Synthroid] 25 mcg PO QAM 09/07/16 [History] Lovastatin [Mevacor] 20 mg PO HS 09/07/16 [History] metFORMIN [Glucophage] 500 mg PO BID 09/07/16 [History] Aspirin 81 mg PO DAILY #30 tab.chew 02/08/17 [Rx] Ammonium Lactate [Lac-Hydrin Five] 2 - 3 gm TP BID PRN 02/10/17 [History] Furosemide [Lasix] 20 mg PO DAILY PRN 06/09/18 [History] Loratadine [Claritin] 10 mg PO DAILY #20 tablet 06/29/18 [Rx] Carvedilol 12.5 mg PO BID 07/14/18 [History] Linagliptin [Tradjenta] 5 mg PO DAILY 07/14/18 [History] Albuterol Sulfate [Proair Hfa] 1 puff IH Q4HR PRN #1 inh 08/29/18 [Rx] Lisinopril-HCTZ 20-12.5 [Prinzide 20-12.5] 1 tab PO BID 09/22/18 [History] Allergies/Adverse Reactions: Allergy/AdvReac Type Severity Reaction Status Date / Time Amoxicillin Allergy Hives Verified 09/22/18 09:53 codeine Allergy Hives Verified 09/22/18 09:53 Sulfa (Sulfonamide AdvReac Nausea Verified 09/22/18 09:53 Antibiotics) Date of admission: 09/21/18 22:07 Primary care physician: Caitlin Castillo DO - Constitutional Vitals: Temp Pulse Resp BP Pulse Ox 97.9 F 89 18 151/77 96 09/22/18 15:53 09/22/18 15:53 09/22/18 15:53 09/22/18 15:53 09/22/18 15:53 General appearance: Present: cooperative, A&O X 3, morbidly obese, pleasant, no acute distress, answers questions appropriately Exam: see below - Head Head exam: Present: atraumatic, normal inspection - Neck Neck exam general surgery: Present: supple - Respiratory Respiratory exam: Present: decreased breath sounds. Absent: rales, respiratory distress, wheezes - Cardiovascular Cardiovascular exam: Present: RRR, +S1, +S2. Absent: tachycardia - GI/Abdominal GI/Abdominal exam: Present: normal bowel sounds, soft. Absent: rebound, rigid, tenderness - Extremities Exam Extremities exam: Absent: calf tenderness, pedal edema, tenderness - Back Exam Back exam: Absent: CVA tenderness (L), CVA tenderness (R) - Neurological Exam Neurological exam: Present: alert, CN II-XII intact, normal gait, oriented X3, reflexes normal, no focal deficits, strengths equal and symetr throughout. Absent: motor sensory deficit, facial droop, speech deficit - Psychiatric Psychiatric exam: Present: normal affect, normal mood - Patient Status Disposition: Home, Self-Care Condition: Good Overall status at discharge: patient is back to baseline - Discharge Instructions Follow Up With: Caitlin Castillo DO [Primary Care Provider] - Forms: ED Satisfaction Letter, Work/School Release - Diet and Activity Activity: increase activity as tolerated Diet: low salt diet
[2018-09-22] MEDS ORDERED: Insulin LISPRO 300 UNITS/3 ML VIAL SQ SCH (21:00)
--- NOTE | 2018-09-25 06:41 | Electrocardiograph Report ---
[facility] Interview [facility] Test Date: 2018-09-21 Pat Name: Savita Mills Department: EXAM5 Room: 3B47 Gender: F [employer]: : [id number] Requested By: Lars Mckeon Order Number: [id number] Reading MD: Javier Xiao Measurements Intervals [place] Rate: 99 P: 13 NH: 204 QRS: 12 QRSD: 147 T: -11 QT: 371 QTc: 477 Interpretive Statements Sinus rhythm Right bundle branch block Electronically Signed On 09-25-2018 6:40:11 EST by Javier Xiao
== END 2018-09-22 18:11 | disposition home or self-care (01) ==
LOC: EMEROOARM 19:00 → 3BNU 19:00
PROVIDERS: ADMIT Family Medicine; ATTEND Family Medicine